=== PATIENT | female | born 1965 | race Caucasian/White ===

== ENCOUNTER 2024-11-30 10:30 | Outpatient (REF) | payer MEDICAID, SELFPAY ==
--- NOTE | ~2024-11-30 | XR_ITS ---
EXAMINATION: XR ANKLE 3 OR MORE VIEWS RIGHT, XR FOOT 3 OR MORE VIEWS RIGHT HISTORY: right ankle/foot edema/pain COMPARISON: There are no prior studies available for comparison. FINDINGS: Six views of the right foot and ankle are submitted. Osseous mineralization is normal. There is no fracture or dislocation. The joint spaces are preserved. There is soft tissue swelling over the lateral malleolus. XR/XR foot RT min 3V IMPRESSION: Soft tissue swelling over the lateral malleolus. No evidence of fracture of the right foot or ankle. Electronically signed by: Kip Love MD 11/30/2024 11:02 AM EDT
--- NOTE | ~2024-11-30 | XR_ITS ---
EXAMINATION: XR ANKLE 3 OR MORE VIEWS RIGHT, XR FOOT 3 OR MORE VIEWS RIGHT HISTORY: right ankle/foot edema/pain COMPARISON: There are no prior studies available for comparison. FINDINGS: Six views of the right foot and ankle are submitted. Osseous mineralization is normal. There is no fracture or dislocation. The joint spaces are preserved. There is soft tissue swelling over the lateral malleolus. XR/XR ankle RT min 3V IMPRESSION: Soft tissue swelling over the lateral malleolus. No evidence of fracture of the right foot or ankle. Electronically signed by: Kip Love MD 11/30/2024 11:02 AM EDT
--- OUTSIDE RECORDS SUMMARY | 2024-11-30 11:31 | XMS_ITS | Encounter Summary ---
Author Organization [facility] Address [address] [place] [address] Care Team Providers Care Building Carpenter Name Role Phone Cathleen Gill [facility]ER Primary Care Provider [phone] Encounter Details Date Type Department Care Team ([facility] st Contact Info) Description 06/15/[address] [phone] Slim Lopez [phone] [place] [address] Social History Tobacco Use Types Packs/Day Years Used Date Smoking Tobacco: Never Smokeless Tobacco: Never Alcohol Use Standard Drinks/Week Comments No 0 (1 standard drink = 0.6 oz pur e alcohol) Comments Unknown Sex and Gender Information Value Date Recorded Sex Assigned at Female 05/07/2017 8:23 AM PDT Legal Sex Female 7:58 AM PDT Gender Identity Female 05/07/2017 8:23 AM PDT Sexual Orientation Straight 05/07/2017 8: 23 AM PDT Occupation Industry Job Start Date Job End Date Unemployed Not on file Not on file Not on file documented as of this encounter Miscellaneous Notes * Patient Instructions - Slim Lopez - 06/16/2017 9:26 AM EST If you are not able to keep your appointment please call [phone] hours before your appointment to cancel or reschedule. documented in this encounter Plan of Treatment Not on file documented as of this encounter Visit Diagnoses Not on filedocumented in this encounter Care Teams Building Carpenter Relationship Specialty Start Date End Date Cathleen Gill NP [address] [place] [id number] PCP - General Internal Medicine 10/21/17 04/26/18 documented as of this encounter
--- OUTSIDE RECORDS SUMMARY | 2024-11-30 11:31 | XMS_ITS | Encounter Summary ---
Author Organization [employer] Address [address] [facility] 7t [place] [address] Care Team Providers Care Sound Effects Technician Name Role Phone Unavailable Primary Care Provider Unavailabl e Encounter Details Date Type Department Care Team (Latest Contact Info) Description 11/29/2024 Travel Social History Tobacco Use Types Packs/Day Years Used Date Smoking Tobacco: Never Passive Smoke Exposure: Never Smokeless Tobacco: Never Comments Unknown Sex and Gender Information Value Date Recorded Sex Assigned at Female 09/28/2024 6:13 PM EDT Legal Sex Female 10:05 AM EST Gender Identity Female 09/28/2024 6:13 PM EDT Sexual Orientation Straight 09/28/2024 6: 59 PM EDT documented as of this encounter Plan of Treatment Upcoming Encounters Date Type Department Care Team (Late st Contact Info) Description 11/30/2024 1:30 PM EDT Office Visit [facility] ADULT DENTAL [address] [place] [address] Ajith Sapp DMD [address] [place] [address] 02/13/2025 10:45 AM EDT Office Visit [facility] MEDICINE [address] [place] [address] Sandy Whitley MD [address] [place] [address] documented as of this encounter Visit Diagnoses Not on filedocumented in this encounter
--- OUTSIDE RECORDS SUMMARY | 2024-11-30 11:31 | XMS_ITS | Clinical Summary ---
Author Organization [facility] Address [address] [place] [address] Care Team Providers Care Process Control Operator Name Role Phone Unavailable Primary Care Provider Unavailabl e Source Comments PLEASE NOTE, if this patient is a minor, it may be UNLAWFUL to discuss sensitive information that is contained in these records (such as FAMILY PLANNING, MENTAL HEALTH or SUBSTANCE ABUSE) with the minor patient's parent or other person without the patient's specific authorization.[facility] Allergies Active Allergy Reactions Criticality Noted Date Comments Penicillin G Rash 05/07/2017 Medications metoprolol succinate (TOPROL-XL) 100 mg 24 hr tablet TK 1 T PO QD 5 8 Active diclofenac sodium (VOLTAREN) 1 % gelIndications: Pain of left hip joint Apply topically 2 (two) times daily 100 g 1 8 Active rosuvastatin (CRESTOR) 5 mg tablet TK 1 T PO QD 5 8 Active hydroCHLOROthia zide (HYDRODIURIL) 25 mg tablet TK 1 T PO QD 4 8 Active acetaminophen (TYLENOL) 500 mg tabletIndicatio ns:Chronic pain of both knees Take 2 Tabs by mouth 2 to 3 (two to three) times daily 60 Tab 2 8 Active ergocalciferol, vitamin D2, (VITAMIN D2) 50,000 unit capsuleIndicati ons:Chronic pain of both knees Take 50,000 Units by mouth once a week Active capsaicin 0.025 % creamIndication s:Right hip pain,Chronic pain of both knees Apply topically 2 (two) times daily 45 g 2 8 Active diclofenac epolamine (FLECTOR) 1.3 % patchIndication s:Mid back pain on left side Place 1 Patch onto the skin 2 (two) times daily as needed for pain 30 Patch 1 8 Active Active Problems Problem Noted Date Diagnosed Date PAM (obstructive sleep apnea) 05/03/2018 Overview (05/03/2018): Sleep study ordered by cardiology Chronic diastolic heart failure ([facility] 2017 Overview (05/03/2018): Seen by cardiology-last follow-up 04/13/18-she thinks breathing is better but sometimes it is still heavy -I see that her creatinine on March 25 was up to 1.65. Prior to hctz it was 0.9, i'm going to repeat today. We may need to stop the drug. otherwise she is doing well, we await the result of her home sleep study. Return office visit with me in 6 months. History of dyspnea 12/15/2017 Overview (12/15/2017): 12/09/2017 [facility]- DR Cr Routine 2 views No acute pulmonary disease. Depression 10/21/2017 Hyperlipidemia 10/21/2017 Positive cardiac stress test 07/22/2017 Overview (10/21/2017): Pt follows with [facility] Cardiology at [address] in [place]. Scheduled with PVC Chronic daily headache 07/06/2017 Essential hypertension 06/08/2017 Anemia 05/07/2017 Overview (05/07/2017): Reports was treated with iron supplement- LMP 08/2016 Reports heavy periods in the past Arthropathy Overview (05/07/2017): [place] tests [place] in [place]- was told everything is normal Immunizations Immunization Administration Dates Next Due Flu, Preservative Free 04/16/2018,05/07/2017 TDAP 05/07/2017 Family History Medical History Relation Name Comments Diabetes Father Heart Problems Father Hypertension Father Diabetes Mother Hypertension Mother Mental illness Mother Relation Name Status Comments Father Mother Alive Social History Tobacco Use Types Packs/Day Years Used Date Smoking Tobacco: Never Smokeless Tobacco: Never Tobacco Cessation:Counseling Given: Yes Alcohol Use Standard Drinks/Week Comments No 0 (1 standard drink = 0.6 oz pur e alcohol) Social Connections Answer Date Recorded Social Connections and Isolation 0 03/13/2019 Financial Resource Strain Answer Date R ecorded Financial Resource Strain 0 2018 Stress Answer Date Recorded Stress 0 03/13/2019 Physical Activity Answer Date Recorded Physical Activity 0 03/13/2019 Food Insecurity Answer Date Recorded Food 0 03/13/2019 Transportation Needs Answer Date Record ed Transportation 0 03/13/2019 Housing Stability Answer Date Recorded Housing 0 03/13/2019 Safety and Environment Answer Date Linden rded Safety 0 03/13/2019 Utilities Answer Date Recorded Utilities 0 03/13/2019 Employment Answer Date Recorded Employment 0 03/13/2019 Comments No Sex and Gender Information Value Date Recorded Sex Assigned at Female 05/07/2017 8:23 AM PDT Legal Sex Female 7:58 AM PDT Gender Identity Female 05/07/2017 8:23 AM PDT Sexual Orientation Straight 05/07/2017 8: 23 AM PDT Occupation Industry Job Start Date Job End Date Unemployed Not on file Not on file Not on file Last Filed Vital Signs Vital Sign Reading Time Taken Comments Blood Pressure 140/84 04/16/2018 1:49 PM EDT Pulse 64 04/16/2018 1:07 PM EDT Temperature 36.1 ??C (96.9 ??F) 04/16/2018 1:07 PM ED T Respiratory Rate 12 04/16/2018 1:07 PM EDT Oxygen Saturation 98% 02/01/2018 4:05 PM EDT Inhaled Oxygen Concentration - - Weight 95.7 kg (211 lb) 04/16/2018 1:07 PM EDT Height 158 cm (5' 2.21 ) 04/16/2018 1:07 PM EDT Body Mass Index 38.34 04/16/2018 1:07 PM EDT Plan of Treatment Not on file Insurance [facility] [place] [address] [facility]
--- OUTSIDE RECORDS SUMMARY | 2024-11-30 11:32 | XMS_ITS | Clinical Summary ---
Author Organization [employer] Address [address] [place] [address] Care Team Providers Care Pattern Grader Cutter Name Role Phone Unavailable Primary Care Provider Unavailabl e Allergies Active Allergy Reactions Criticality Noted Date Comments Penicillins Hives 09/28/2024 Medications metoprolol succinate XL (Toprol-XL) 100 MG 24 hr tablet Take 1 tablet by mouth Once per day. 8 Active montelukast (Singulair) 10 MG tablet Take 10 mg by mouth at bedtime. Active rosuvastatin (Crestor) 10 MG tablet Take 10 mg by mouth Once per day. Active cyclobenzaprine (Flexeril) 10 MG tablet Take 1 tablet (10 mg) by mouth 3 times daily for 10 days. 30 tablet 5 Active meloxicam (Mobic) 15 MG tablet Take 1 tablet (15 mg) by mouth Once per day. 30 tablet 5 11/30/19 26 Active Diclofenac Sodium 1 % gel Apply 2 g topically 4 times daily. 350 g 2 5 11/28/19 25 Active Problems Problem Noted Date Diagnosed Date Extensor tendinitis of foot 11/29/2024 Assessment & Plan (11/29/2024 6:31 PM EDT): Recommended use of appropriate shoes that have support and Achilles tendon Elevate leg at least 3 times per day, apply ice on affected area for at least 15 minutes Take meloxicam daily x 1 week and Tylenol as needed Order x-ray of foot and follow-up with PCP Edema of right foot 11/29/2024 Assessment & Plan (11/29/2024 6:31 PM EDT): Most likely related to tendinitis, rule out DVT due to extension of the edema Order right leg DVT ultrasound Arthropathy 10/20/2024 Overview (10/20/2024): many tests done in [place]- was told everything is normal Flat foot 04/17/2021 Plantar fasciitis 04/17/2021 Tendonitis, Achilles, left 04/17/2021 Chronic diastolic heart failure 05/03/2018 Overview (10/20/2024): Seen by cardiology-last follow-up 04/13/18-she thinks breathing [...] office visit with me in 6 months. PAM (obstructive sleep apnea) 05/03/2018 Overview (10/20/2024): Sleep study ordered by cardiology History of dyspnea 12/15/2017 Overview (10/20/2024): 12/09/2017 [facility]- DR Cr Routine 2 views No acute pulmonary disease. Depression 10/21/2017 Hyperlipidemia 10/21/2017 Positive cardiac stress test 07/22/2017 Overview (10/20/2024): Pt follows with [facility] Cardiology at [address] in [place]. Scheduled with PVC Chronic daily headache 07/06/2017 Essential hypertension 06/08/2017 Anemia 05/07/2017 Overview (10/20/2024): Reports was treated with iron supplement- LMP 08/2016 Reports heavy periods in the past Encounters Date Type Department Care Team Description 11/29/2024 6:00 PM EDT Office Visit [facility] WALK-IN [address] [address] Sandy Whitley MD Edema of right foot (Primary Dx); Extensor tendinitis of foot 11/29/2024 Travel 10/20/2024 Telephone [facility] MEDICINE [address] [place] [address] Dariusz Mcclure MD New patient appt. 09/30/2024 Population Health Risk Score [facility] (C[facility]) Department [address] [phone] Provider, Population Health Generic 09/28/2024 6:40 PM EDT Office Visit [facility] C[facility] [address] [place] [address] Ivana Gregory FNP Lumbar radiculopathy (Primary Dx) 09/28/2024 Travel from Last 3 Months Immunizations Immunization Administration Dates Next Due Influenza injectable quadrivalent preservative f ree 04/16/2018,05/07/2017 Tdap 05/07/2017 Social History Tobacco Use Types Packs/Day Years Used Date Smoking Tobacco: Never Passive Smoke Exposure: Never Smokeless Tobacco: Never Tobacco Cessation:Counseling Given: Not Answered Comments Unknown Sex and Gender Information Value Date Recorded Sex Assigned at Female 09/28/2024 6:13 PM EDT Legal Sex Female 10:05 AM EST Gender Identity Female 09/28/2024 6:13 PM EDT Sexual Orientation Straight 09/28/2024 6: 59 PM EDT Last Filed Vital Signs Vital Sign Reading Time Taken Comments Blood Pressure 197/77 11/29/2024 6:13 PM EDT Pulse 62 11/29/2024 6:13 PM EDT Temperature 36.9 ??C (98.5 ??F) 11/29/2024 6:13 PM ED T Respiratory Rate 16 11/29/2024 6:13 PM EDT Oxygen Saturation 100% 09/28/2024 6:17 PM EDT Inhaled Oxygen Concentration - - Weight 94.1 kg (207 lb 6.4 oz) 11/29/2024 6:13 P M EDT Height 154.9 cm (5' 1 ) 09/28/2024 6:17 PM EDT Body Mass Index 39.19 09/28/2024 6:17 PM EDT Plan of Treatment Upcoming Encounters Date Type Department Care Team (Late st Contact Info) Description 11/30/2024 1:30 PM EDT Office Visit [facility] ADULT DENTAL [address] [place] [address] Jose MariayennyAjith, DMD [address] [place], [place] [phone] 02/13/2025 10:45 AM EDT Office Visit [facility] MEDICINE [address] [place] [address] Sandy Whitley MD [address] [place], [place] [phone] Health Maintenance Due Date Last Done Comments CT Colonography 1967 Colonoscopy 1967 Colorectal Cancer Screening 1967 Dental Oral Exam 1967 Dental Prophylaxis 1967 Dental X-Ray: Bitewings 1967 Dental X-Ray: Full Mouth 1967 Depression Screening 1967 FIT DNA/Cologuard 1967 FIT 1967 FOBT 1967 HIV Screening 1967 Lipid Panel 1967 SDOH Screening 1967 Sigmoidoscopy 1967 Alcohol/Substance Use Screening 1979 Hepatitis C Screening 12/09/1985 Hepatitis B Vaccines (1 of 3 - 19+ 3-dose series) 12/09/1986 Pneumococcal Vaccine: 50+ Years (1 of 2 - PCV) 12/09/1986 Pap Smear 12/09/1988 Cervical Cancer Screening 12/09/1997 HPV/Cotest 12/09/1997 Mammogram 2007 Zoster Vaccines (1 of 2) 12/09/2017 COVID-19 Vaccine ( - 2023-2 5 season) 2024 Influenza Vaccine (#1) 2024 8, 05/07/2017 Tobacco Screening 09/28/2025 09/28/2024 DTaP/Tdap/Td Vaccines (2 - T d or Tdap) 05/07/2027 05/07/2017 RSV Patients and Patients Aged 60 years or older (1 - 1-dose 75+ series) 12/09/2042 HIB Vaccines Aged Out No longer eligi ble based on patient's age to complete this topic HPV Vaccines Aged Out No longer eligi ble based on patient's age to complete this topic Hepatitis A Vaccines Aged Out No long er eligible based on patient's age to complete this topic IPV Vaccines Aged Out No longer eligi ble based on patient's age to complete this topic Meningococcal B Vaccine Aged Out No l onger eligible based on patient's age to complete this topic Meningococcal Vaccine Aged Out No kirstie vahid eligible based on patient's age to complete this topic RSV under 20 months Aged Out No longe r eligible based on patient's age to complete this topic Rotavirus Vaccines Aged Out No longer eligible based on patient's age to complete this topic Procedures Procedure Name Priority Date/Time Associated Diagnosis Comments XR FOOT 3+ VIEWS RIGHT Routine 11/30/2024 10:30 AM EDT Edema of right foot XR ANKLE 3+ VIEWS RIGHT Routine 11/30/2024 10:30 AM EDT Edema of right foot from Last 3 Months Results * XR Foot 3+ Views Right (11/30/2024 10:30 AM EDT) Anatomical Region Laterality Modality Lower Extremities, Foot Right [facility] 11/30/2024 10:3 0 AM EDT Narrative 11/30/2024 11:06 AM EDT ?[facility] ?[address] ?[place] [address] ?XRay Report ? Signed ? Patient: Breana Clarillo,Connie ?MR#: MM ?? [id number] ? : 1965 ?Acct:[id number] ? Age/Sex: 58 / F ?ADM Date: 11/30/24 ? Loc: HO.HHCX ? Attending Dr: Sandy Whitley MD ? Ordering Physician: Sandy Whitley MD ?? Date of Service: 11/30/24 ?? Procedure(s): XR foot RT min 3V ?? Accession Number(s): [id number] ? cc: Sandy Whitley MD ? EXAMINATION: ??XR ANKLE 3 OR MORE VIEWS RIGHT, XR FOOT 3 OR MORE VIEWS ?? RIGHT ? HISTORY: right ankle/foot edema/pain ? COMPARISON: There are no prior studies available for comparison. ? FINDINGS: ? Six views of the right foot and ankle are submitted. ??Osseous ?? mineralization is normal. ??There is no fracture or dislocation. ??The ?? joint spaces are preserved. ??There is soft tissue swelling over the ?? lateral malleolus. ? XR/XR foot RT min 3V ?? IMPRESSION: ? Soft tissue swelling over the lateral malleolus. No evidence of ?? fracture of the right foot or ankle. ? Electronically signed by: ??Kip Love MD ??11/30/2024 11:02 AM EDT ? Dictated By: ?Kip Love MD ? Signed By: ?<Electronically signed by Kip Love MD in OV> ?11/30/24 1102 ? DD/ 1030 ? TD/TT: 11/30/24 1040 ? Manager Employment: ? Procedure Note [employer], Image - 11/30/2024 [place] [address] XRay Report Signed Patient: Valentina HammondsR#: [id number] : 1965Acct:[id number] Age/Sex: 58 / FADM Date: 11/30/24 Loc: HO.HHCX Attending Dr: Sandy Whitley MD Ordering Physician: Sandy Whitley MD Date of Service: 11/30/24 Procedure(s): XR foot RT min 3V Accession Number(s): [id number] cc: Sandy Whitley MD EXAMINATION: XR ANKLE 3 OR MORE VIEWS RIGHT, XR FOOT 3 OR MORE VIEWS RIGHT HISTORY: right ankle/foot edema/pain COMPARISON: There are no prior studies available for comparison. FINDINGS: Six views of the right foot and ankle are submitted. Osseous mineralization is normal. There is no fracture or dislocation. The joint spaces are preserved. There is soft tissue swelling over the lateral malleolus. XR/XR foot RT min 3V IMPRESSION: Soft tissue swelling over the lateral malleolus. No evidence of fracture of the right foot or ankle. Electronically signed by: Kip Love MD 11/30/2024 11:02 AM EDT Dictated By: Kip Love MD Signed By: <Electronically signed by Kip Love MD in OV> 11/30/24 1102 DD/ 1030 TD/TT: 11/30/24 1040 Manager Employment: us Sandy Whitley MD IMG XR PROCEDURES Final Result * XR Ankle 3+ Views Right (11/30/2024 10:30 AM EDT) Anatomical Region Laterality Modality Lower Extremities, Ankle Right Radiogr [facility] Imaging 11/30/2024 10:3 0 AM EDT Narrative 11/30/2024 11:06 AM EDT ?[facility] ?[address] ?[place] [address] ?XRay Report ? Signed ? Patient: Breana Clarillo,Connie ?MR#: [id number] ?? [id number] ? : 1965 ?Acct:[id number] ? Age/Sex: 58 / F ?ADM Date: 11/30/24 ? Loc: HO.HHCX ? Attending Dr: Sandy Whitley MD ? Ordering Physician: Sandy Whitley MD ?? Date of Service: 11/30/24 ?? Procedure(s): XR ankle RT min 3V ?? Accession Number(s): [id number] ? cc: Sandy Whitley MD ? EXAMINATION: ??XR ANKLE 3 OR MORE VIEWS RIGHT, XR FOOT 3 OR MORE VIEWS ?? RIGHT ? HISTORY: right ankle/foot edema/pain ? COMPARISON: There are no prior studies available for comparison. ? FINDINGS: ? Six views of the right foot and ankle are submitted. ??Osseous ?? mineralization is normal. ??There is no fracture or dislocation. ??The ?? joint spaces are preserved. ??There is soft tissue swelling over the ?? lateral malleolus. ? XR/XR ankle RT min 3V ?? IMPRESSION: ? Soft tissue swelling over the lateral malleolus. No evidence of ?? fracture of the right foot or ankle. ? Electronically signed by: ??Kip Love MD ??11/30/2024 11:02 AM EDT ?? RP ? Dictated By: ?Kip Love MD ? Signed By: ?<Electronically signed by Kip Love MD in OV> ?11/30/24 1102 ? DD/ 1030 ? TD/TT: 11/30/24 1040 ? Manager Employment: ? Procedure Note [employer], Image - 11/30/[address] [address] XRay Report Signed Patient: Yifan HammondssMR#: [id number] : 1965Acct:[id number] Age/Sex: 58 / FADM Date: 11/30/24 Loc: HO.HHCX Attending Dr: Sandy Whitley MD Ordering Physician: Sandy Whitley MD Date of Service: 11/30/24 Procedure(s): XR ankle RT min 3V Accession Number(s): [id number] cc: Sandy Whitley MD EXAMINATION: XR ANKLE 3 OR MORE VIEWS RIGHT, XR FOOT 3 OR MORE VIEWS RIGHT HISTORY: right ankle/foot edema/pain COMPARISON: There are no prior studies available for comparison. FINDINGS: Six views of the right foot and ankle are submitted. Osseous mineralization is normal. There is no fracture or dislocation. The joint spaces are preserved. There is soft tissue swelling over the lateral malleolus. XR/XR ankle RT min 3V IMPRESSION: Soft tissue swelling over the lateral malleolus. No evidence of fracture of the right foot or ankle. Electronically signed by: Kip Love MD 11/30/2024 11:02 AM EDT Dictated By: Kip Love MD Signed By: <Electronically signed by Kip Love MD in OV> 11/30/24 1102 DD/ 1030 TD/TT: 11/30/24 1040 Manager Employment: Sandy Whitley MD IMG XR PROCEDURES Final Result from Last 3 Months Insurance [facility] C3 DENTAL-[facility] MEDICAID STAND ADULT
--- OUTSIDE RECORDS SUMMARY | 2024-11-30 11:32 | XMS_ITS | Clinical Summary ---
[facility] [address] [place] [address] Care Team Providers Care Supervisor Shipping Name Role Phone Joseph De León MD Primary Care Provider [phone] Family History Medical History Relation Name Comments Heart attack Father Diabetes Mother Hypertension Mother Relation Name Status Comments Father Mother Social History Tobacco Use Types Packs/Day Years Used Date Smoking Tobacco: Never Smokeless Tobacco: Never Alcohol Use Standard Drinks/Week Comments No 0 (1 standard drink = 0.6 oz pur e alcohol) Comments Unknown Sex and Gender Information Value Date Recorded Sex Assigned at Not on file Legal Sex Female 2:00 AM EST Gender Identity Not on file Sexual Orientation Not on file Obstetrics History Plan of Treatment Health Maintenance Due Date Last Done Comments Breast Cancer Screening 1965 DTaP,Tdap,and Td Vaccines (1 - Tdap) 12/09/1986 Hepatitis B Vaccines (1 of 3 - 19+ 3-dose series) 12/09/1986 Cervical Cancer Screening: P ap Smear 12/09/1988 Pneumococcal Vaccine: 50+ Ye ars (1 of 1 - PCV) 12/09/2017 Zoster Vaccines (1 of 2) 12/09/2017 COVID-19 Vaccine ( - 2023-2 5 season) 2024 Influenza Vaccine (Season Ended) 2025 HIB Vaccines Aged Out No longer eligi [...] on patient's age to complete this topic MMR Vaccines Aged Out No longer eligi ble based on patient's age to complete this topic Meningococcal ACWY Vaccine Aged Out N o longer eligible based on patient's age to complete this topic Meningococcal B Vaccine Aged Out No l onger eligible based on patient's age to complete this topic Pneumococcal Vaccine: Pediat rics (0 to 5 Years) and At-Risk Patients (6 to 64 Years) Aged Out No longer eligible b ased on patient's age to complete this topic RSV Immunization Patients Un ced 20 months Aged Out No longer eligible b ased on patient's age to complete this topic Varicella Vaccines Aged Out No longer eligible based on patient's age to complete this topic Care Teams Supervisor Shipping Relationship Specialty Start Date End Date Joseph De León MD [address] [place] [address] [id number] [place] [address] PCP - General Internal Medicine 06/10/20
--- OUTSIDE RECORDS SUMMARY | 2024-11-30 11:32 | XMS_ITS | Encounter Summary ---
Author Organization [employer] Address [address] [facility] 7t [place] [address] Care Team Providers Care Literacy Coordinator Name Role Phone Unavailable Primary Care Provider Unavailabl e Reason for Referral * Imaging (Routine) - Authorized Specialty Diagnoses / Procedures Referred By Contac t Referred To Contact Cardiology Diagnoses Edema of right foot Procedures Vascular US lower extremity venous duplex right Sandy Whitley MD [address] [place] [address] Phone: tel: fax: [address] Phone: tel: fax: Referral ID Status Reason Start Date Expiration Date Visits Requested Visits Authorized [id number] Authorized Perform Procedure 11/29/2024 11/29/2025 1 1 Reason for Visit * Reason Comments Foot Swelling Patient reports righ t foot pain x 1 week, and swelling x 4 days Encounter Details Date Type Department Care Team (Late st Contact Info) Description 11/29/2024 6:00 PM EDT Office Visit [facility] [address] [place] [phone] Sandy Whitley MD [address] [place] [address] [phone] Edema of right foot (Primary Dx); Extensor tendinitis of foot Social History Tobacco Use Types Packs/Day Years Used Date Smoking Tobacco: Never Passive Smoke Exposure: Never Smokeless Tobacco: Never Comments Unknown Sex and Gender Information Value Date Recorded Sex Assigned at Female 09/28/2024 6:13 PM EDT Legal Sex Female 10:05 AM EST Gender Identity Female 09/28/2024 6:13 PM EDT Sexual Orientation Straight 09/28/2024 6: 59 PM EDT documented as of this encounter Last Filed Vital Signs Vital Sign Reading Time Taken Comments Blood Pressure 197/77 11/29/2024 6:13 PM EDT Pulse 62 11/29/2024 6:13 PM EDT Temperature 36.9 ??C (98.5 ??F) 11/29/2024 6:13 PM ED T Respiratory Rate 16 11/29/2024 6:13 PM EDT Oxygen Saturation - - Inhaled Oxygen Concentration - - Weight 94.1 kg (207 lb 6.4 oz) 11/29/2024 6:13 P M EDT Height - - Body Mass Index 39.19 09/28/2024 6:17 PM EDT documented in this encounter Progress Notes * Sandy Whitley MD - 11/29/2024 6:00 PM EDT SUBJECTIVE: Connie Cardona is a 58 y.o. year old female who presents for Walk In Center/swollen foot . Denies recent illness, injury, or hospitalization. PMHx HTN HLD Fibromyalgia IFG PSHx x 4, last one on 04/2006 Sp Endometrial ablation 2y ago. FamHx Mother is , had PD, DM, HTN Father at age 70s from ACS. Soc Hx Lives with her daughter She's on disability. Acute Concerns: Right foot edema and tenderness with ambulation x 1w. No hx trauma , fall, fever. No hx prolonged travel, she drives her car doing errands on a regular basis. Social History Social History Narrative Not on file Patient Active Problem List Diagnosis Anemia Arthropathy Chronic daily headache Chronic diastolic heart failure (CMS/HCC) Depression Essential hypertension Flat foot History of dyspnea Hyperlipidemia PAM (obstructive sleep apnea) Plantar fasciitis Positive cardiac stress test Tendonitis, Achilles, left Extensor tendinitis of foot Edema of right foot No family history on file. Review of Systems Constitutional: Negative for chills, fatigue and fever. HENT: Negative for congestion, ear pain, nosebleeds, rhinorrhea, sinus pressure, sore throat and trouble swallowing. Eyes: Negative for pain and discharge. Respiratory: Negative for cough, chest tightness and shortness of breath. Cardiovascular: Negative for chest pain, palpitations and leg swelling. Gastrointestinal: Negative for abdominal pain, blood in stool, constipation, diarrhea and nausea. Endocrine: Negative for polydipsia and polyuria. Genitourinary: Negative for dysuria, frequency, genital sores, pelvic pain and vaginal discharge. Musculoskeletal: Positive for gait problem and joint swelling. Negative for back pain and neck pain. Skin: Negative for rash. Allergic/Immunologic: Negative for environmental allergies. Neurological: Negative for dizziness, seizures, weakness, light-headedness and headaches. Hematological: Negative for adenopathy. Psychiatric/Behavioral: Negative for agitation, behavioral problems, self-injury and suicidal ideas. OBJECTIVE: Vitals: 11/29/24 1813 BP: (!) 197/77 Pulse: 62 Resp: 16 Temp: 98.5 ??F (36.9 ??C) Physical Exam Constitutional: Appearance: Normal appearance. HENT: Right Ear: Tympanic membrane and ear canal normal. Left Ear: Tympanic membrane and ear canal normal. Mouth/Throat: Mouth: Mucous membranes are moist. Pharynx: No oropharyngeal exudate or posterior oropharyngeal erythema. Eyes: Pupils: Pupils are equal, round, and reactive to light. Cardiovascular: Rate and Rhythm: Normal rate and regular rhythm. Pulses: Normal pulses. Dorsalis pedis pulses are 2+ on the right side and 2+ on the left side. Posterior tibial pulses are 2+ on the right side and 2+ on the left side. Heart sounds: Normal heart sounds. No murmur heard. Pulmonary: Breath sounds: Normal breath sounds. No wheezing. Abdominal: General: Bowel sounds are normal. Palpations: Abdomen is soft. Tenderness: There is no abdominal tenderness. Musculoskeletal: General: Normal range of motion. Cervical back: Normal range of motion and neck supple. No tenderness. Right ankle: Swelling present. Tenderness present over the ATF ligament. Right foot: No deformity. Left foot: No deformity. Feet: Right foot: Protective Sensation: 7 sites tested. 7 sites sensed. Skin integrity: No ulcer or fissure. Toenail Condition: Right toenails are normal. Left foot: Protective Sensation: 7 sites tested. 7 sites sensed. Skin integrity: No ulcer or fissure. Toenail Condition: Left toenails are normal. Comments: Right foot pitting edema 2, preserved capillary filling, neg foot or interdigital lesions. Tenderness to palpation over extensor tendons of right foot. Skin: General: Skin is warm. Neurological: General: No focal deficit present. Mental Status: She is alert and oriented to person, place, and time. Psychiatric: Mood and Affect: Mood normal. Behavior: Behavior normal. Problem List Items Addressed This Visit Extensor tendinitis of foot Recommended use of appropriate shoes that have support and Achilles tendon Elevate leg at least 3 times per day, apply ice on affected area for at least 15 minutes Take meloxicam daily x 1 week and Tylenol as needed Order x-ray of foot and follow-up with PCP Edema of right foot - Primary Most likely related to tendinitis, rule out DVT due to extension of the edema Order right leg DVT ultrasound Relevant Orders XR Ankle 3+ Views Right Vascular US lower extremity venous duplex right XR Foot 3+ Views Right Follow Up: Current Outpatient Medications on File Prior to Visit Medication Sig Dispense Refill cyclobenzaprine (Flexeril) 10 MG tablet Take 1 tablet (10 mg) by mouth 3 times daily for 10 days. 30 tablet 0 [] Diclofenac Sodium 1 % gel Apply 2 g topically 4 times daily. 350 g 2 metoprolol succinate XL (Toprol-XL) 100 MG 24 hr tablet Take 1 tablet by mouth Once per day. montelukast (Singulair) 10 MG tablet Take 10 mg by mouth at bedtime. rosuvastatin (Crestor) 10 MG tablet Take 10 mg by mouth Once per day. No current facility-administered medications on file prior to visit. documented in this encounter Miscellaneous Notes * Assessment & Plan Note - Sandy Whitley MD - 11/29/2024 6:31 PM EDT Associated Problem(s): Edema of right foot Most likely related to tendinitis, rule out DVT due to extension of the edema Order right leg DVT ultrasound * Assessment & Plan Note - Sandy Whitley MD - 11/29/2024 6:31 PM EDT Associated Problem(s): Extensor tendinitis of foot Recommended use of appropriate shoes that have support and Achilles tendon Elevate leg at least 3 times per day, apply ice on affected area for at least 15 minutes Take meloxicam daily x 1 week and Tylenol as needed Order x-ray of foot and follow-up with PCP documented in this encounter Plan of Treatment Upcoming Encounters Date Type Department Care Team (Late st Contact Info) Description 11/30/2024 1:30 PM EDT Office Visit [facility] [address] [place] [address] Ajith Sapp, DMD [address] [place] [address] 02/13/2025 10:45 AM EDT Office Visit [facility] [address] [place] [address] Sandy Whitley MD [address] [place] [address] documented as of this encounter Procedures Procedure Name Priority Date/Time Associated Diagnosis Comments XR FOOT 3+ VIEWS RIGHT Routine 11/30/2024 10:30 AM EDT Edema of right foot XR ANKLE 3+ VIEWS RIGHT Routine 11/30/2024 10:30 AM EDT Edema of right foot documented in this encounter Results * XR Foot 3+ Views Right (11/30/2024 10:30 AM EDT) Anatomical Region Laterality Modality Lower Extremities, Foot Right Radiogra [facility] Imaging 11/30/2024 10:3 0 AM EDT Narrative 11/30/2024 11:06 AM EDT ?[facility] ?[address] ?[place] [address] ?XRay Report ? Signed ? Patient: Breana Clarillo,Connie ?MR#: MM ?? [id number] ? : 1965 ?Acct:[id number] ? Age/Sex: 58 / F ?ADM Date: 05/14/25 ? Loc: HO.HHCX ? Attending Dr: Sandy Whitley MD ? Ordering Physician: Sandy Whitley MD ?? Date of Service: 11/30/24 ?? Procedure(s): XR foot RT min 3V ?? Accession Number(s): [id number] ? cc: Sandy Whitley MD ? EXAMINATION: [...] ? Signed By: ?<Electronically signed by Kip Loev MD in OV> ?11/30/24 1102 ? DD/ 1030 ? TD/TT: 11/30/24 1040 ? Grading Supervisor: ? Procedure Note Med Brower - 11/30/[address] [address] XRay Report Signed Patient: Shayan Hammonds#: [id number] : 1965Acct:[id number] Age/Sex: 58 / FADM Date: 11/30/24 Loc: HO.HHCX Attending Dr: Sandy Whitley MD Ordering Physician: Sandy Whitley MD Date of Service: 11/30/24 Procedure(s): XR foot RT min 3V Accession Number(s): [id number] cc: Sandy Whitley MD EXAMINATION: XR ANKLE [...] Kip Love MD 11/30/2024 11:02 AM EDT RP Dictated By: Kip Love MD Signed By: <Electronically signed by Kip Love MD in OV> 11/30/24 1102 DD/ 1030 TD/TT: 11/30/24 1040 Grading Supervisor: Sandy Whitley MD IMG XR PROCEDURES Final Result * XR Ankle 3+ Views Right (11/30/2024 10:30 AM EDT) Anatomical Region Laterality Modality Lower Extremities, Ankle Right Radiogr aphic Imaging 11/30/2024 10:3 0 AM EDT Narrative 11/30/2024 11:06 AM EDT ?[facility] ?[address] ?[place] [address] ?XRay Report ? Signed ? Patient: Breana Clarillo,Connie ?MR#: MM ?? [id number] ? : 1965 ?Acct:[id number] ? Age/Sex: 58 / F ?ADM Date: 05/14/25 ? Loc: HO.HHCX ? Attending Dr: Sandy Whitley MD ? Ordering Physician: Sandy Whitley MD ?? Date of Service: 11/30/24 ?? Procedure(s): XR ankle RT min 3V ?? Accession Number(s): [id number] ? cc: Sandy Whitley MD ? EXAMINATION: [...] DD/ 1030 ? TD/TT: 11/30/24 1040 ? Grading Supervisor: ? Procedure Note Inocente, Image - 11/30/[address] [address] XRay Report Signed Patient: Yifan HammondssMR#: [id number] : 1965Acct:[id number] Age/Sex: 58 / FADM Date: 11/30/24 Loc: HO.HHCX Attending Dr: Sandy Whitley MD Ordering Physician: Sandy Whitley MD Date of Service: 11/30/24 Procedure(s): XR ankle RT min 3V Accession Number(s): [id number] cc: Sandy Whitley MD EXAMINATION: XR ANKLE [...] Kip Love MD 11/30/2024 11:02 AM EDT RP Dictated By: Kip Love MD Signed By: <Electronically signed by Kip Love MD in OV> 11/30/24 1102 DD/ 1030 TD/TT: 11/30/24 1040 Grading Supervisor: us Sandy Whitley MD IMG XR PROCEDURES Final Result documented in this encounter Visit Diagnoses Diagnosis Edema of right foot- Primary Extensor tendinitis of foot documented in this encounter
== END 2024-11-30 10:31 | disposition home or self-care (01) ==
LOC: HO.HHCX 10:30
PROVIDERS: Visit Provider Internal Medicine
DX: R60.0 Localized edema (principal)
CPT/HCPCS: 73610; 73630

== ENCOUNTER → 2024-11-30 10:30 | Outpatient (BNV) | payer MEDICAID, SELFPAY | PROVIDERS: Visit Provider Radiology Diagnostic Radiology | DX: M70.871 Other soft tissue disorders related to use, overuse and pressure, right ankle and foot (principal); M79.671 Pain in right foot | CPT/HCPCS: 73610; 73630 ==

== ENCOUNTER 2024-12-01 08:37 | Outpatient (REF) | payer MEDICAID, SELFPAY ==
--- NOTE | ~2024-12-01 | US_ITS ---
EXAMINATION: US LOWER EXTREMITY VEINS LIMITED FOLLOW UP RIGHT HISTORY: EDEMA OF RT FOOT COMPARISON: There are no prior studies for comparison. TECHNIQUE: Duplex and color Doppler sonographic examination of the deep venous system of the right lower extremity was performed. FINDINGS: The common femoral, superficial femoral, and popliteal veins are patent demonstrating normal compressibility, spontaneous flow, and augmentation. There is a normal color and spectral Doppler waveform appearance of the visualized deep venous system above the knee. The posterior tibial and peroneal veins are patent. US/US venous duplex LE RT IMPRESSION: No evidence of acute DVT in the right lower extremity. Electronically signed by: Kip Love MD 12/01/2024 09:43 AM EDT
--- OUTSIDE RECORDS SUMMARY | 2024-12-01 09:00 | XMS_ITS | Encounter Summary ---
Author Organization [employer] Address [address] [facility] 7t [place] [address] Care Team Providers Care Head Of Cytogenetics Name Role Phone Unavailable Primary Care Provider Unavailabl e Reason for Visit * Reason Comments Dental Exam Encounter Details Date Type Department Care Team (Late st Contact Info) Description 11/30/2024 1:30 PM EDT Office Visit [facility] [address] [place] [address] Ajith Sapp DMD [address] [place] [address] Social History Tobacco Use Types Packs/Day Years Used Date Smoking Tobacco: Never Passive Smoke Exposure: Never Smokeless Tobacco: Never Alcohol Use Standard Drinks/Week Comments Never 0 (1 standard drink = 0.6 oz [...] Sign Reading Time Taken Comments Blood Pressure 154/80 11/30/2024 1:24 PM EDT Pulse 68 11/30/2024 1:24 PM EDT Temperature - - Respiratory Rate - - Oxygen Saturation - - Inhaled Oxygen Concentration - - Weight - - Height - - Body Mass Index - - documented in this encounter Progress Notes * Ajith Sapp DMD - 11/30/2024 1:30 PM EDT C/C: dental exam I.O.E: gen plaque accumulation, erythematous and edematous gingiva, bleeding upon probing at UR posterior teeth E.O.E: wnl OCS: wnl Head and neck: wnl Radiographic: gen moderate periodontal bone loss, gen calculus accumulation Dx: gen chronic moderate periodontitis Tx: prophy, recall exam Jada documented in this encounter Plan of Treatment Upcoming Encounters Date Type Department Care Team (Late st Contact Info) Description 12/26/2024 3:00 PM EDT Office Visit [facility] [address] [place] [address] Sheng Mcelroy 02/13/2025 10:45 AM EDT Office Visit [facility] [address] [place], [place] [phone] Sandy Whitley MD [address] [place], [place] [phone] Scheduled Orders Name Type Priority Associated Diagnoses Orde r Schedule PROPHYLAXIS - ADULT Dental Routine 1 Occ urrences starting 11/30/2024 documented as of this encounter Procedures Procedure Name Priority Date/Time Associated Diagnosis Comments PERIODIC ORAL EVALUATION - ESTABLISHED PATIENT Routine 11/30/2024 1:30 PM EDT INTRAORAL - COMPLETE SERIES OF RADIOGRAPHIC IMAGES Routine 11/30/2024 1:30 PM EDT CASE PRESENTATION, DETAILED AND EXTENSIVE TREATMENT PLANNING Routine 11/30/2024 1:30 PM EDT 19 DO COMPOSITE FILLING Routine 12/01/19 25 12:00 AM EDT 14 LO COMPOSITE FILLING Routine 12/01/19 25 12:00 AM EDT 32 O AMALGAM FILLING Routine 11/30/2024 12:00 AM EDT 31 O AMALGAM FILLING Routine 11/30/2024 12:00 AM EDT 29 O AMALGAM FILLING Routine 11/30/2024 12:00 AM EDT 28 O AMALGAM FILLING Routine 11/30/2024 12:00 AM EDT 18 O AMALGAM FILLING Routine 11/30/2024 12:00 AM EDT 15 O AMALGAM FILLING Routine 11/30/2024 12:00 AM EDT 13 DO AMALGAM FILLING Routine 11/30/2024 12:00 AM EDT documented in this encounter Visit Diagnoses Not on filedocumented in this encounter
--- OUTSIDE RECORDS SUMMARY | 2024-12-01 09:00 | XMS_ITS | Encounter Summary ---
Author Organization [facility] Address [address] [place] [address] Care Team Providers Care Sport Shoe Spike Assembler Name Role Phone Cathleen Gill LEAFLET OR NEWSPAPER DELIVERER Primary Care Provider [phone] Encounter Details Date Type Department Care Team ([facility] st Contact Info) Description 06/15/[address] [phone] Slim Lopez [phone] [place] [address] Social History Tobacco Use Types Packs/Day Years [...] on filedocumented in this encounter Care Teams Sport Shoe Spike Assembler Relationship Specialty Start Date End Date Cathleen Gill NP [address] [place] [phone] PCP - General Internal Medicine 10/21/17 04/26/18 documented as of this encounter
--- OUTSIDE RECORDS SUMMARY | 2024-12-01 09:00 | XMS_ITS | Encounter Summary ---
Author Organization [employer] Address [address] [facility] 7t [place] [address] Care Team Providers Care Painter Aircraft Name Role Phone Unavailable Primary Care Provider [...] Description 12/26/2024 3:00 PM EDT Office Visit [facility] [address] [place] [address] Sheng Mcelroy 02/13/2025 10:45 AM EDT Office Visit [facility] [address] [place] [address] Sandy Whitley MD [address] [place] [address] documented as of this encounter Visit Diagnoses Not on filedocumented in this encounter
--- OUTSIDE RECORDS SUMMARY | 2024-12-01 09:00 | XMS_ITS | Encounter Summary ---
Author Organization [employer] Address [address] [facility] 7t [place] [address] Care Team Providers Care Pharmacy Data Analyst Name Role Phone Unavailable Primary Care Provider Unavailabl e Reason for Referral * Imaging (Routine) - Authorized Specialty Diagnoses / Procedures Referred By Contac t Referred To Contact Cardiology Diagnoses Edema of right foot Procedures Vascular US lower extremity venous duplex right Sandy Whitley MD [address] [place] [address] Phone: tel: fax: [address] Phone: tel: fax: Referral ID Status Reason Start Date Expiration Date Visits Requested Visits Authorized [id number] Authorized Perform Procedure 11/29/2024 11/29/2025 1 1 Reason for Visit * Reason Comments Foot Swelling Patient reports righ t foot pain x 1 week, and swelling x 4 days Encounter Details Date Type Department Care Team (Late st Contact Info) Description 11/29/2024 6:00 PM EDT Office Visit [facility] [address] [place] [phone] Sandy Whitley MD [address] [place] [address] [phone] Edema of right foot (Primary Dx); Extensor [...] Description 12/26/2024 3:00 PM EDT Office Visit [facility] [address] [place] [address] Shegn Mcelroy 02/13/2025 10:45 AM EDT Office Visit [facility] [address] [place] [address] Sandy Whitley MD [address] [place] [address] documented as of this encounter Procedures Procedure [...] Laterality Modality Lower Extremities, Foot Right Radiogra psychiatric Imaging 11/30/2024 10:3 0 AM EDT Narrative 11/30/2024 11:06 AM EDT ?[facility] ?[address] ?[place] [address] ?XRay Report ? Signed ? Patient: Breana Clarillo,Connie ?MR#: MM ?? [id number] ? : 1965 ?Acct:[id number] ? Age/Sex: 58 / F ?ADM Date: 05/14/25 ? Loc: HO.HHCX ? Attending Dr: Sandy Whitley MD ? Ordering Physician: Sandy Whitley MD ?? Date of Service: 11/30/24 ?? Procedure(s): XR foot RT min 3V ?? Accession Number(s): [id number] ? cc: Sandy Whitley MD ? EXAMINATION: [...] DD/ 1030 ? TD/TT: 11/30/24 1040 ? Fur Storage Clerk: ? Procedure Note Inocente, Image - 11/30/[address] [address] XRay Report Signed Patient: Shayan Hammonds#: MM [id number] : 1965Acct:[id number] Age/Sex: 58 / FADM Date: 11/30/24 Loc: HO.HHCX Attending Dr: Sandy Whitley MD Ordering Physician: Sandy Whitley MD Date of Service: 11/30/24 Procedure(s): XR foot RT min 3V Accession Number(s): [id number] cc: Sandy Whitley MD EXAMINATION: XR ANKLE [...] 11/30/24 1102 DD/ 1030 TD/TT: 11/30/24 1040 Fur Storage Clerk: Sandy Whitley MD IMG XR PROCEDURES Final Result * XR Ankle 3+ Views Right (11/30/2024 10:30 AM EDT) Anatomical Region Laterality Modality Lower Extremities, Ankle Right Radiogr aphic Imaging 11/30/2024 10:3 0 AM EDT Narrative 11/30/2024 11:06 AM EDT ?[facility] ?[address] ?[place] [address] ?XRay Report ? Signed ? Patient: Breana Clarillo,Connie ?MR#: MM ?? [id number] ? : 1965 ?Acct:[id number] ? Age/Sex: 58 / F ?ADM Date: 11/30/24 ? Loc: HO.HHCX ? Attending Dr: Sandy Whitley MD ? Ordering Physician: Sandy Whitley MD ?? Date of Service: 11/30/24 ?? Procedure(s): XR ankle RT min 3V ?? Accession Number(s): [id number] ? cc: Sandy Whitley MD ? EXAMINATION: [...] DD/ 1030 ? TD/TT: 11/30/24 1040 ? Fur Storage Clerk: ? Procedure Note Inocente, Image - 11/30/2024 [place] [address] XRay Report Signed Patient: Valentina HammondsR#: [id number] : 1965Acct:[id number] Age/Sex: 58 / FADM Date: 11/30/24 Loc: HO.HHCX Attending Dr: Sandy Whitley MD Ordering Physician: Sandy Whitley MD Date of Service: 11/30/24 Procedure(s): XR ankle RT min 3V Accession Number(s): [id number] cc: Sandy Whitley MD EXAMINATION: XR ANKLE [...] 11/30/24 1102 DD/ 1030 TD/TT: 11/30/24 1040 Fur Storage Clerk: us Sandy Whitley MD IMG XR PROCEDURES Final Result documented in this encounter Visit Diagnoses Diagnosis Edema of right foot- Primary Extensor tendinitis of foot documented in this encounter
--- OUTSIDE RECORDS SUMMARY | 2024-12-01 09:00 | XMS_ITS | Clinical Summary ---
Author Organization [facility] Address [address] [place] [address] Care Team Providers Care Quality Control Industrial Engineer Name Role Phone Unavailable Primary Care Provider [...] ordered by cardiology Chronic diastolic heart failure ([facility]) 2017 Overview (05/03/2018): Seen by cardiology-last follow-up [...] History of dyspnea 12/15/2017 Overview (12/15/2017): 12/09/2017 [facility]- DR Cr Routine 2 views No acute pulmonary disease. Depression 10/21/2017 Hyperlipidemia 10/21/2017 Positive cardiac stress test 07/22/2017 Overview (10/21/2017): Pt follows with [facility] at [address] [facility] [address] in [place]. Scheduled with PVC Chronic daily headache 07/06/2017 Essential hypertension 06/08/2017 Anemia 05/07/2017 Overview (05/07/2017): Reports was treated with iron supplement- LMP 08/2016 Reports heavy periods in the past Arthropathy Overview (05/07/2017): many tests done in [place]- was told everything is normal Immunizations Immunization [...] Insurance [facility] [address] [facility]
--- OUTSIDE RECORDS SUMMARY | 2024-12-01 09:00 | XMS_ITS | Clinical Summary ---
Author Organization [facility] [facility] [employer] Address [address] [facility] [address] [place] [address] Care Team Providers Care Drill Press Operator Helper Name Role Phone Unavailable Primary Care Provider Unavailabl e Allergies Active Allergy Reactions Criticality Noted Date Comments Penicillin G Rash Low 05/07/2017 Penicillins Hives 09/28/2024 Medications metoprolol succinate XL [...] for 10 days. 30 tablet 5 Active Additional Information Patient not taking.Reported on 11/30/2024 meloxicam (Mobic) 15 MG tablet Take 1 tablet (15 mg) by mouth Once per day. 30 tablet 5 11/30/19 26 Active Additional Information Patient not taking.Reported on 11/30/2024 Diclofenac Sodium 1 % gel Apply 2 g topically 4 times daily. 350 g 2 5 11/28/19 25 Additional Information Patient not taking.Reported on 11/30/2024 Active Problems Problem Noted Date Diagnosed Date [...] 10/20/2024 Overview (10/20/2024): many tests done in [place]- was told everything is normal Flat foot [...] History of dyspnea 12/15/2017 Overview (10/20/2024): 12/09/2017 [facility]- DR Cr Routine 2 views No acute pulmonary disease. Depression 10/21/2017 Hyperlipidemia 10/21/2017 Positive cardiac stress test 07/22/2017 Overview (10/20/2024): Pt follows with [facility] at [address] [facility] [address] in [place]. Scheduled with PVC Chronic daily headache 07/06/2017 Essential hypertension 06/08/2017 Anemia 05/07/2017 Overview (10/20/2024): Reports was treated with iron supplement- LMP 08/2016 Reports heavy periods in the past Encounters Date Type Department Care Team Description 11/30/2024 1:30 PM EDT Office Visit [facility] [address] [place] [address] Ajith Sapp, GRAY 11/29/2024 6:00 PM EDT Office Visit [facility] [address] [place] [phone] Sandy Whitley MD Edema of right foot (Primary Dx); Extensor tendinitis of foot 11/29/2024 Travel 10/20/2024 Telephone [facility] [address] [place] [address] Dariusz Mcclure MD New patient appt. 09/30/2024 Population Health Risk Score [facility] ([facility]) Department [address] [place] [id number] Provider, Population Health Generic 09/28/2024 6:40 PM EDT Office Visit [facility] [address] [place] [phone] Ivana Gregory FNP Lumbar radiculopathy (Primary Dx) 09/28/2024 Travel from Last 3 Months Immunizations Immunization Administration Dates Next Due Influenza injectable quadrivalent preservative f ree 04/16/2018,05/07/2017 Tdap 05/07/2017 Social History Tobacco Use Types Packs/Day Years Used Date Smoking Tobacco: Never Passive Smoke Exposure: Never Smokeless Tobacco: Never Tobacco Cessation:Counseling Given: Not Answered Alcohol Use Standard Drinks/Week Comments Never 0 (1 standard drink = 0.6 oz pur e alcohol) Comments Unknown Sex and Gender Information Value Date Recorded Sex Assigned at Female 09/28/2024 6:13 PM EDT Legal Sex Female 10:05 AM EST Gender Identity Female 09/28/2024 6:13 PM EDT Sexual Orientation Straight 09/28/2024 6 :59 PM EDT Last Filed Vital Signs Vital Sign Reading Time Taken Comments Blood Pressure 154/80 11/30/2024 1:24 PM EDT Pulse 68 11/30/2024 1:24 PM EDT Temperature 36.9 ??C (98.5 ??F) [...] Description 12/26/2024 3:00 PM EDT Office Visit [facility] [address] [place] [address] Sheng Mcelroy 02/13/2025 10:45 AM EDT Office Visit [facility] [address], [place] [phone] Sandy Whitley MD [address] [place], [place] [phone] Health Maintenance Due Date Last Done Comments CT Colonography 1967 Colonoscopy 1967 Colorectal Cancer Screening 1967 Dental Prophylaxis 1967 Depression Screening 1967 FIT DNA/Cologuard 1967 [...] 2024 Influenza Vaccine (#1) 2024 8, 05/07/2017 Dental Oral Exam 06/03/2025 11/30/2024 Tobacco Screening 11/30/2025 11/30/2024 Dental X-Ray: Bitewings 12/01/2025 11/30/2024 DTaP/Tdap/Td Vaccines (2 - T d or Tdap) 05/07/2027 05/07/2017 Dental X-Ray: Full Mouth 12/02/2027 11/30/2024 RSV Patients and Patients Aged 60 years [...] ESTABLISHED PATIENT Routine 11/30/2024 1:30 PM EDT CASE PRESENTATION, DETAILED AND EXTENSIVE TREATMENT PLANNING Routine 11/30/2024 1:30 PM EDT INTRAORAL - COMPLETE SERIES OF RADIOGRAPHIC IMAGES Routine 11/30/2024 1:30 PM EDT XR FOOT 3+ VIEWS RIGHT Routine 11/30/2024 10:30 AM EDT Edema of right foot XR ANKLE 3+ VIEWS RIGHT Routine 11/30/2024 10:30 AM EDT Edema of right foot 19 DO COMPOSITE FILLING Routine 11/30/2024 12:00 AM EDT 14 LO COMPOSITE FILLING Routine 11/30/2024 12:00 AM EDT 32 O AMALGAM FILLING [...] AMALGAM FILLING Routine 11/30/2024 12:00 AM EDT from Last 3 Months Results * XR Foot 3+ Views Right (11/30/2024 10:30 AM EDT) Anatomical Region Laterality Modality Lower Extremities, Foot Right Radiogra phic Imaging 11/30/2024 10:3 0 AM EDT Narrative 11/30/2024 11:06 AM EDT ?[facility] ?[address] ?[place] [address] ?XRay Report ? Signed ? Patient: Breana Clarillo,Connie ?MR#: [id number] ?? [id number] ? : 1965 ?Acct:[id number] ? Age/Sex: 58 / F ?ADM Date: 11/30/24 ? Loc: HO.HHCX ? Attending Dr: Sandy Whitley MD ? Ordering Physician: Sandy Whitley MD ?? Date of Service: 11/30/24 ?? Procedure(s): XR foot RT min 3V ?? Accession Number(s): [id number] ? cc: Sandy Whitley MD ? EXAMINATION: [...] AM EDT ?? RP ? Dictated By: ?iKp Love MD ? Signed By: ?<Electronically signed by Kip Love MD in OV> ?11/30/24 1102 ? DD/ 1030 ? TD/TT: 11/30/24 1040 ? Supervisor Harvesting: ? Procedure Note Donotuseinterpreter, Image - 11/30/[address] [address] XRay Report Signed Patient: Valentina HammondsR#: [id number] : 1965Acct:[id number] Age/Sex: 58 / FADM Date: 11/30/24 Loc: HO.HHCX Attending Dr: Sandy Whitley MD Ordering Physician: Sandy Whitley MD Date of Service: 11/30/24 Procedure(s): XR foot RT min 3V Accession Number(s): [id number] cc: Sandy Whitley MD EXAMINATION: XR ANKLE [...] 11/30/24 1102 DD/ 1030 TD/TT: 11/30/24 1040 Supervisor Harvesting: us Sandy Whitley MD IMG XR PROCEDURES Final Result * XR Ankle 3+ Views Right (11/30/2024 10:30 AM EDT) Anatomical Region Laterality Modality Lower Extremities, Ankle Right Radiogr aphic Imaging 11/30/2024 10:3 0 AM EDT Narrative 11/30/2024 11:06 AM EDT ?[facility] ?[address] ?[place] [address] ?XRay Report ? Signed ? Patient: Breana Clarillo,Connie ?MR#: [id number] ?? [id number] ? : 1965 ?Acct:[id number] ? Age/Sex: 58 / F ?ADM Date: 11/30/24 ? Loc: HO.HHCX ? Attending Dr: Sandy Whitley MD ? Ordering Physician: Sandy Whitley MD ?? Date of Service: 11/30/24 ?? Procedure(s): XR ankle RT min 3V ?? Accession Number(s): [id number] ? cc: Sandy Whitley MD ? EXAMINATION: [...] DD/ 1030 ? TD/TT: 11/30/24 1040 ? Supervisor Harvesting: ? Procedure Note Inocente, Image - 11/30/[address] [address] XRay Report Signed Patient: Shayan Hammonds#: [id number] : 1965Acct:[id number] Age/Sex: 58 / FADM Date: 11/30/24 Loc: HO.HHCX Attending Dr: Sandy Whitley MD Ordering Physician: Sandy Whitley MD Date of Service: 11/30/24 Procedure(s): XR ankle RT min 3V Accession Number(s): [id number] cc: Sandy Whitley MD EXAMINATION: XR ANKLE [...] 11/30/24 1102 DD/ 1030 TD/TT: 11/30/24 1040 Supervisor Harvesting: Sandy Whitley MD IMG XR PROCEDURES Final Result from Last [address] [place] [address] [facility] MEDICAID STAND ADULT
== END 2024-12-01 08:38 | disposition home or self-care (01) ==
LOC: HO.US 08:37
PROVIDERS: Visit Provider Internal Medicine
DX: R60.0 Localized edema (principal)
CPT/HCPCS: 93971

== ENCOUNTER → 2024-12-01 09:25 | Outpatient (BNV) | payer MEDICAID, SELFPAY | PROVIDERS: Visit Provider Radiology Diagnostic Radiology | DX: R22.41 Localized swelling, mass and lump, right lower limb (principal) | CPT/HCPCS: 93971 ==

== ENCOUNTER 2025-01-10 10:00 | Outpatient (RCR) | payer MEDICAID, SELFPAY | END 2025-01-17 12:34 | disposition home or self-care (01) | LOC: HO.PT 10:00 | PROVIDERS: PCP Internal Medicine; Visit Provider Nurse Practitioner Family | DX: M54.16 Radiculopathy, lumbar region (principal) | CPT/HCPCS: 97110; 97161; 97535 ==

== ENCOUNTER 2025-01-18 09:23 | Outpatient (REF) | payer MEDICAID, SELFPAY ==
--- OUTSIDE RECORDS SUMMARY | 2025-01-18 09:38 | XMS_ITS | Encounter Summary ---
Author Organization [employer] Address [address] [facility] [address] [place] [address] Care Team Providers Care Retail Project Merchandiser Name Role Phone Unavailable Primary Care Provider Unavailabl e Encounter Details Date Type Department Care Team (Late st Contact Info) Description 12/08/2024 Results Follow-Up [facility] [address] [place] [address] Sandy Whitley MD [address] [place] [address] XR Foot 3+ Views Right Social History Tobacco Use Types Packs/Day Years [...] PM EDT documented as of this encounter Miscellaneous Notes * Result Encounter Note - Sandy Whitley MD - 12/08/2024 4:12 PM EDT X-ray of right ankle and foot on 11/30/2024 showed changes consistent with tendinitis which patient was treated for at the time of the visit. I will follow-up with her as scheduled documented in this encounter Plan of Treatment Upcoming Encounters Date Type Department Care Team (Late Contact Info) Description 02/13/2025 10:45 AM EDT Office Visit [facility] [address] [place] [address] Sandy Whitley MD [address] [place] [address] 06/28/2025 2:00 PM EST Office Visit [facility] [address] [place] [address] Sheng Mcelroy documented as of this encounter Visit Diagnoses Not on filedocumented in this encounter
--- OUTSIDE RECORDS SUMMARY | 2025-01-18 09:38 | XMS_ITS | Clinical Summary ---
Author Organization [facility] Address [address] [place] [address] Care Team Providers Care Record Producer Name Role Phone Joseph De León MD Primary Care Provider [phone] Family History Medical History Relation Name Comments [...] 2023-2 5 season) 2024 Influenza Vaccine (#1) 2025 HIB Vaccines Aged Out No longer [...] age to complete this topic Care Teams Record Producer Relationship Specialty Start Date End Date Joseph De León MD [address] [place] [address] [id number] [place] [address] PCP - General Internal Medicine 06/10/20
--- OUTSIDE RECORDS SUMMARY | 2025-01-18 09:38 | XMS_ITS | Clinical Summary ---
Author Organization [facility] Address [address] [place] [address] Care Team Providers Care Police Patrol Lieutenant Name Role Phone Unavailable Primary Care Provider [...] ordered by cardiology Chronic diastolic heart failure ([facility]) 05/03/2018 Overview (05/03/2018): Seen by cardiology-last follow-up 04/13/18-she [...] History of dyspnea 12/15/2017 Overview (12/15/2017): 12/09/2017 [facility]- DR Cr Routine 2 views No acute pulmonary disease. Depression 10/21/2017 Hyperlipidemia 10/21/2017 Positive cardiac stress test 07/22/2017 Overview (10/21/2017): Pt follows with [facility] at [address] [facility] [address] in [place]. Scheduled with PVC Chronic daily headache 07/06/2017 Essential hypertension 06/08/2017 Anemia 05/07/2017 Overview (05/07/2017): Reports was treated with iron supplement- LMP 08/2016 Reports heavy periods in the past Arthropathy Overview (05/07/2017): many tests done in [place]- was told everything is normal Immunizations Immunization [...] 66 04/16/2018 1:07 PM EDT Temperature 36.1 C (96.9 F) 04/16/2018 1:07 PM EDT Respiratory Rate 12 04/16/2018 1:07 PM EDT Oxygen Saturation 98% 02/01/2018 4:05 PM EDT Inhaled Oxygen Concentration - - Weight 95.7 kg (211 lb) 04/16/2018 1:07 PM EDT Height 158 cm (5' 2.21 ) 04/16/2018 1:07 PM EDT Body Mass Index 38.34 04/16/2018 1:07 PM EDT Plan of Treatment Not on file Insurance [facility]
[2025-01-18 11:26] LABS: Hemoglobin 13.9 g/dl (12.0-16.0); Imm Gran Abs Auto 0.02 X10*3/uL (0.00-0.03); Imm Gran Pct Auto 0.3 % (0.0-0.4); Lymphocytes Absolute Auto 1.7 X10*3/uL (1.2-4.9); MANUAL DIFF FLAG SCAN; NRBC Abs Auto 0.000 X10*3/uL (0.0-0.012); NRBC Pct Auto 0.0 /100WBC (0.0-0.2); PLT CLUMP 1; SCAN SMEAR FLAG 1
[2025-01-18 11:28] LABS: Hematocrit 40.8 % (37.0-47.0); Mean Corpuscular HGB Conc 34.1 g/dl (31.0-35.0); Mean Corpuscular Hemoglobin 28.1 pg (27.0-33.0); Mean Corpuscular Volume 82.4 fL (80.0-98.0); Red Blood Count 4.95 X10*6/uL (4.20-5.50)
[2025-01-18 11:31] LABS: Hemoglobin A1C 146.0522 umol/L; Total Hemoglobin (HGBA1C) 3584.5625 umol/L
[2025-01-18 11:32] LABS: White Blood Count 6.2 X10*3/uL (4.8-10.8)
[2025-01-18 12:30] LABS: Alanine Aminotransferase 20 U/L (0-31); Albumin Level 4.5 g/dL (3.5-5.0); Alkaline Phosphatase 102 U/L (39-117); Anion Gap 10 (12-20); Aspartate Amino Transferase 24 U/L (5-31); Blood Urea Nitrogen 16 mg/dL (9-16); Calcium 9.1 mg/dL (8.4-10.2); Carbon Dioxide 27 mmol/L (22-29); Chloride 108 mmol/L (96-108); Cholesterol 120 mg/dL (<200); Estimated Glomerular Filt Rate > 60; HDL Cholesterol 35 mg/dL (>40); Magnesium 2.1 mg/dL (1.6-2.6); Potassium 4.0 mmol/L (3.3-5.1); Sodium 141 mmol/L (135-145); Total Protein 7.0 g/dL (6.5-8.0); Triglycerides 106 mg/dL (<150)
[2025-01-18 12:35] LABS: HBS Num1 0.56 mIU/mL (0-7.99); HBc Num1 0.06 S/CO (0.00-0.79); HBsAGNum1 0.32 S/CO (0.00-0.99); HIV Num 1 0.07 S/CO (0.00-0.99); Hepatitis B Surface Antigen Negative (Negative); ~HepC Num1 0.16 S/CO (0.00-0.79); ~Hepatitis B Surface Antibody NONREACTIVE (Nonreactive); ~Hepatitis C Antibody Nonreactive (Nonreactive)
[2025-01-18 12:41] LABS: Vitamin B12 751 pg/mL (200-900)
== END 2025-01-18 09:24 | disposition home or self-care (01) ==
LOC: HO.HHCL 09:23
PROVIDERS: PCP Internal Medicine; Visit Provider Emergency Medicine
DX: M79.89 Other specified soft tissue disorders (principal); M25.471 Effusion, right ankle; I10 Essential (primary) hypertension
CPT/HCPCS: 36415; 80053; 80061; 82607; 83036; 83735; 84443; 85025; 86592; 86704; 86706; 86803; 87340; 87389

== ENCOUNTER 2025-02-13 11:53 | Outpatient (REF) | payer MEDICAID, SELFPAY ==
--- NOTE | ~2025-02-13 | XR_ITS ---
EXAMINATION: XR LUMBAR SPINE 4 OR MORE VIEWS HISTORY: chronic LBP COMPARISON: There are no prior studies for comparison. FINDINGS: AP, lateral, bilateral oblique, and coned down views of the lumbar spine are submitted. Osseous mineralization is normal. Five nonrib-bearing lumbar vertebral bodies are identified, maintaining normal height and alignment without evidence of fracture or spondylolisthesis. The intervertebral disc spaces are preserved. The posterior elements are intact. There is no spondylolysis. There is a 1.1 cm calcification overlying the lower pole of the right renal shadow which likely represents a renal calculus. XR/XR lumbar spine 4V min IMPRESSION: 1. Unremarkable examination of the lumbar spine. 2. Probable 1.1 cm left lower pole renal calculus. Electronically signed by: Kip Love MD 02/13/2025 01:34 PM EDT
--- NOTE | ~2025-02-13 | XR_ITS ---
EXAMINATION: XR KNEE 4 OR MORE VIEWS LEFT HISTORY: left knee OA/edema COMPARISON: There are no prior studies available for comparison. FINDINGS: Four views of the left knee are submitted. Osseous mineralization is normal. There is no fracture or dislocation. There is mild to moderate osteoarthritis of the patellofemoral compartment and mild osteoarthritis of the medial and lateral compartments with joint space narrowing. The soft tissues are unremarkable. There is no joint effusion. XR/XR knee LT 4V IMPRESSION: Osteoarthritis of the left knee as described. Electronically signed by: Kip Love MD 02/13/2025 01:30 PM EDT
--- OUTSIDE RECORDS SUMMARY | 2025-02-13 13:01 | XMS_ITS | Clinical Summary ---
Author Organization [facility] Address [address] [place] [address] Care Team Providers Care Donor Services Manager Name Role Phone Joseph De León MD Primary Care Provider [phone] Family History Medical History Relation Name Comments [...] Vaccine ( - 2023-2 5 season) 2024 Depression Screening 07/20/2024 Influenza Vaccine (#1) 2025 HIB Vaccines Aged [...] age to complete this topic Care Teams Donor Services Manager Relationship Specialty Start Date End Date Joseph De León MD [address] [place] [address] [id number] [place] [address] PCP - General Internal Medicine 06/10/20
--- OUTSIDE RECORDS SUMMARY | 2025-02-13 13:01 | XMS_ITS | Clinical Summary ---
Author Organization [facility] Address [address] [place] [phone] Phone Care Team Providers Care Import Dispatcher Name Role Phone Pcp, Unknown Primary Care Provider Unavailabl e Allergies Active Allergy Reactions Criticality Noted Date Comments Penicillin G Rash Low 05/07/2017 Medications PROAIR HFA 90 mcg/actuation inhaler 1 Active FREESTYLE LITE Strp strips CHECK BLOOD GLUCOSE DAILY DIRECTED 1 Active diclofenac sodium (VOLTAREN) 1 % Gel APPLY 2 GRAMS TOPICALLY TO THE AFFECTED AREA FOUR TIMES DAILY NEEDED FOR PAIN APPLY TO AFFECED AREA. NOT TO EXCEED 8 GM DAILY 1 Active ergocalciferol (DRISDOL) 50,000 unit capsule Take 50,000 Units by mouth. Active furosemide (LASIX) 20 MG tablet TOME SRI TABLETA POR V A ORAL TODOS LOS D 1 Active gabapentin (NEURONTIN) 300 MG capsule Take 600 mg by mouth 4 (four) times a day. 1 Active metFORMIN (GLUCOPHAGE) 500 MG tablet TAKE 1 TABLET BY MOUTH EVERY DAY AT SUPPER 1 Active metoprolol tartrate (LOPRESSOR) 100 MG tablet Take 100 mg by mouth daily. 1 Active montelukast (SINGULAIR) 10 mg tablet TOME SRI TABLETA TODOS LOS D 1 Active rosuvastatin (CRESTOR) 10 MG tablet TOME SRI TABLETA TODOS LOS D 1 Active VIIBRYD 20 mg Tab TOME SRI TABLETA POR V A ORAL CADA MA ANGELINE AFTER A MEAL Active Active Problems Problem Noted Date Diagnosed Date Flat foot 04/17/2021 Plantar fasciitis 04/17/2021 Tendonitis, Achilles, left 04/17/2021 Social History Tobacco Use Types Packs/Day Years Used Date Smoking Tobacco: Never Smokeless Tobacco: Never Alcohol Use Standard Drinks/Week Comments Yes 0 (1 standard drink = 0.6 oz pur e alcohol) occ Education Answer Date Recorded Are you interested in more education? Not on henry e 11/14/2022 Are you concerned about learning? Not on file 11/14/2022 No 11/14/2022 No 11/14/2022 Digital Access Answer Date Recorded No 12/13/2022 No 12/13/2022 No 12/13/2022 Reliable internet access at home? Not on file 12/13/2022 Device with a working camera? Not on file Comments Unknown Sex and Gender Information Value Date Recorded Sex Assigned at Not on file Legal Sex Female 9:33 AM EDT Gender Identity Not on file Sexual Orientation Not on file Last Filed Vital Signs Vital Sign Reading Time Taken Comments Blood Pressure 118/64 01/30/2021 2:44 PM EDT Pulse 67 01/30/2021 2:44 PM EDT Temperature - - Respiratory Rate - - Oxygen Saturation - - Inhaled Oxygen Concentration - - Weight 89.8 kg (198 lb) 04/16/2021 8:58 AM EDT p t reported Height 154.9 cm (5' 1 ) 04/16/2021 8:58 AM EDT Body Mass Index 37.41 04/16/2021 8:58 AM EDT Plan of Treatment Health Maintenance Due Date Last Done Comments CREATININE LEVEL 1965 LIPID PANEL 1967 DEPRESSION SCREENING 1979 HEPATITIS C SCREENING 12/09/1985 HIV ONE-TIME SCREENING (18-6 5 YEARS) 12/09/1985 PAP SMEAR 12/09/1988 MAMMOGRAM 2007 COLOGUARD 12/09/2012 COLONOSCOPY 12/09/2012 COLORECTAL CANCER SCREENING 12/09/2012 FIT TEST 12/09/2012 FOBT 12/09/2012 SIGMOIDOSCOPY 12/09/2012 VIRTUAL COLONOSCOPY 12/09/2012 PNEUMOCOCCAL VACCINES (50+ years) (1 of 1 - PCV) 12/09/2017 ZOSTER VACCINES (1 of 2) 12/09/2017 COVID-19 VACCINE (3 2023-2 5 season) 2024 10/20/2020, 09/29/2020 Adult Td,Tdap Booster 11/15/2030 11/15/2020 , 05/07/2017 SMOKING STATUS SCREENING (On ce After 26 Yrs) Completed 04/16/2021 HEPATITIS A VACCINES Aged Out No long er eligible based on patient's age to complete this topic HIB VACCINES Aged Out No longer eligi ble based on patient's age to complete this topic MENINGOCOCCAL VACCINES (ACWY) Aged Out No longer eligible based on patient's age to complete this topic MENINGOCOCCAL VACCINES (B) Aged Out N o longer eligible based on patient's age to complete this topic Medical Devices Not on file Insurance [facility] Care Teams Import Dispatcher Relationship Specialty Start Date End Date Pcp, Unknown PCP - General 02/14/22 Additional Source Comments The information contained in this document represents components of the legal health record. It is not the complete legal health record.[facility]
--- OUTSIDE RECORDS SUMMARY | 2025-02-13 13:01 | XMS_ITS | Encounter Summary ---
Author Organization [facility] Address [address] [place] [address] Care Team Providers Care Fitness Supervisor Name Role Phone Cathleen Gill WIRE REPAIRER Primary Care Provider [phone] Encounter Details Date Type Department Care Team ([facility] st Contact Info) Description 06/15/[address] [phone] Slim [phone] [place] [address] Social History Tobacco Use Types Packs/Day Years [...] on filedocumented in this encounter Care Teams Fitness Supervisor Relationship Specialty Start Date End Date Cathleen Gill NP [address] [place] [address] PCP - General Internal Medicine 10/21/17 04/26/18 documented as of this encounter
== END 2025-02-13 11:54 | disposition home or self-care (01) ==
LOC: HO.HHCX 11:53
PROVIDERS: PCP Internal Medicine; Visit Provider Internal Medicine
DX: M17.12 Unilateral primary osteoarthritis, left knee (principal); M54.50 Low back pain, unspecified; G89.29 Other chronic pain
CPT/HCPCS: 72110; 73564

== ENCOUNTER → 2025-02-13 12:28 | Outpatient (BNV) | payer MEDICAID, SELFPAY | PROVIDERS: PCP Internal Medicine; Visit Provider Radiology Diagnostic Radiology | DX: N20.0 Calculus of kidney (principal); M17.12 Unilateral primary osteoarthritis, left knee | CPT/HCPCS: 72110; 73564 ==

== ENCOUNTER 2025-02-14 09:28 | Outpatient (AMB) | payer MEDICAID, SELFPAY ==
--- NOTE | 2025-02-14 09:35 | MHC.OFFVIS ---
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 States this started in November. Patient has discoloration on both feet. Accompanied by: Self / Same As Patient Allergies Penicillins Allergy (Severe, Verified 02/14/25 09:37) Unknown HPI HPI IMPROVEMENT LEADER/HHC referral for LE swelling: Details: Very pleasant 59-year-old female patient presents for painful varicose veins. Complaints include pain over varicosities, swelling of lower extremities, cramping, fatigue, and heaviness of the lower extremities. It has been affecting there daily activities including walking. It is noted more so in right leg. Patient denies any previous venous surgery or injections. Patient denies any history of DVT/ PE. Patient denies any history of phlebitis. Trial of compression includes - [id number] They now present for vascular evaluation regarding their varicose veins. Review of Systems Const Reports as per HPI ENT Reports no additional complaints Card Denies chest pain, Denies chest pain at rest and Denies chest pain with activity Resp Denies chest congestion and Denies cough GI Reports no additional complaints Musc Details: pain over varicosities, aching of lower extremities, swelling, cramping, heaviness and tiredness, itching Denies abnormal gait Skin/Breast Reports pruritus and Denies wounds Neuro Reports no additional complaints and Denies abnormal gait Psych Denies no additional complaints Physical Exam Const General: cooperative, healthy appearing and comfortable Orientation/consciousness: oriented to person, oriented to place and oriented to time Neck Carotids: no bruits Chest Chest palpation & inspection: normal inspection of the chest and normal palpation of entire chest wall Resp Effort & Inspection: normal respiratory effort and able to speak in complete sentences Cardio Rate: regular rate Heart sounds: S1 normal heart sound present and S2 normal heart sound present Peripheral pulses: Peripheral pulses 2+ throughout GI Inspection: Yes normal to inspection Skin Other: +2 edema CEAP Classification C4 - skin color changes Ep - Etiology Primary As - superficial veins P - reflux General skin exam: dry skin Neuro General: oriented to person, oriented to place and oriented to time Extrem Right lower extremity: full ROM, normal capillary refill and edema Left lower extremity: full ROM, normal capillary refill and edema Psych Mental Status: mental status grossly normal Assessment & Plan Assessment & Plan (1) Varicose veins of right lower extremity with inflammation: Code(s): I83.11 - Varicose veins of right lower extremity with inflammation Category: Medical Plan: In short, the patient has evidence of venous insufficiency. I have discussed the pathophysiology with the patient. In addition I have provided informational material regarding venous disease to the patient. We have discussed conservative measures including compression, elevation, and exercise. I have also provided a handout regarding appropriate use of compression stockings and where to purchase good compression stockings as well. I have taken the liberty of ordering venous insufficiency testing with the patient. They will follow up with me after testing. The patient had an opportunity to ask questions regarding the treatment plan. All questions were answered. Imaging studies, laboratory studies and physical exam results were discussed and reviewed in detail. No major barriers to understanding were identified. The patient expressed understanding and agreement with the above treatment plan. The patient is aware they should contact our office by phone for worsening of the current condition or the appearance of new symptoms. Thank you for allowing me to participate in the vascular care of this patient. If you have any questions or concerns regarding the treatment for the above condition please do not hesitate to contact me. The office telephone contact is [phone]. This note is constructed using voice recognition software. While every effort has been made to ensure accuracy, correctional substance abuse counselor errors may have been included. Thank you for allowing me to participate in the care of your patient. Yours sincerely, Karl Garcia MD, FACS, R.P.V.I. Orders: Orders US venous duplex LE BI Today I83.11 - Varicose veins of right lower extremity with inflammation Coding Level of Care Code New Pt Level 4 (89408) Diagnoses Varicose veins of right lower extremity with inflammation I83.11
--- OUTSIDE RECORDS SUMMARY | 2025-02-14 10:00 | XMS_ITS | Encounter Summary ---
Author Organization [facility] Address [address] [place] [address] Care Team Providers Care Flour Mixer Name Role Phone Cathleen Gill COMMUNICATIONS MARKETING INTERN Primary Care Provider [phone] Encounter Details Date Type Department Care Team ([facility] st Contact Info) Description 06/15/[address] [phone] Slim Lopez [phone] [place] [address] Social History Tobacco Use Types Packs/Day Years [...] on filedocumented in this encounter Care Teams Flour Mixer Relationship Specialty Start Date End Date Cathleen Gill NP [address] [place] [id number] PCP - General Internal Medicine 10/21/17 04/26/18 documented as of this encounter
--- OUTSIDE RECORDS SUMMARY | 2025-02-14 10:00 | XMS_ITS | Clinical Summary ---
Author Organization [facility] Address [address] [place] [phone] Phone Care Team Providers Care Billet Heater Name Role Phone Pcp, Unknown Primary Care [...] topic Medical Devices Not on file Insurance [facility] Care Teams Billet Heater Relationship Specialty Start Date End Date Pcp, Unknown PCP - General 02/14/22 Additional Source Comments The information contained in this document represents components of the legal health record. It is not the complete legal health record.[facility]
--- OUTSIDE RECORDS SUMMARY | 2025-02-14 10:00 | XMS_ITS | Clinical Summary ---
Author Organization [facility] Address [address] [place] [address] Care Team Providers Care Crusher Loader Operator Name Role Phone Joseph De León MD Primary Care Provider [phone] Family History Medical History Relation Name Comments [...] age to complete this topic Care Teams Crusher Loader Operator Relationship Specialty Start Date End Date Joseph De León MD [address] [place] [address] [id number] [place] [address] PCP - General Internal Medicine 06/10/20
== END 2025-02-14 09:52 | disposition home or self-care (01) ==
LOC: HO.HVS 09:29
PROVIDERS: PCP Internal Medicine; Visit Provider Surgery Vascular Surgery
DX: I83.11 Varicose veins of right lower extremity with inflammation (principal)
CPT/HCPCS: 99204

== ENCOUNTER → 2025-02-14 09:28 | Outpatient (BNVA) | payer MEDICAID, SELFPAY | PROVIDERS: PCP Internal Medicine; Visit Provider Surgery Vascular Surgery | DX: I83.11 Varicose veins of right lower extremity with inflammation (principal) | CPT/HCPCS: 99202 ==

== ENCOUNTER 2025-03-31 09:46 | Outpatient (REF) | payer MEDICAID, SELFPAY ==
--- NOTE | ~2025-03-31 | US_ITS ---
EXAMINATION: US LOWER EXTREMITY VENOUS (REFLUX EXAM), BILATERAL CLINICAL INFORMATION: Venous incompetence COMPARISON: None. TECHNIQUE: Color flow triplex imaging and compression Doppler was performed to evaluate both the deep and the superficial systems bilaterally. To evaluate the superficial system, the examination was performed in the upright position. Color-flow Doppler ultrasound and compression ultrasound were utilized. In addition, maneuvers were utilized to demonstrate reflux. FINDINGS: 1. DEEP VENOUS ULTRASOUND OF THE RIGHT LOWER EXTREMITY: Common Femoral Vein: Compressible, normal respiratory variation and augmented flow. Femoral Vein: Compressible, normal color flow and augmentation. Popliteal Vein: Compressible, normal augmentation. Deep Reflux: There is no evidence of reflux in the deep system in either the common femoral vein, superficial femoral or the popliteal vein. 2. SUPERFICIAL ULTRASOUND WITH DOPPLER OF RIGHT LOWER EXTREMITY: GREAT SAPHENOUS VEIN: Saphenofemoral Junction: 0.7 cm; Reflux: 0 ms Proximal Thigh: 0.6 cm; Reflux: 0 ms Mid Thigh: 0.3 cm; Reflux: 0 ms Distal Thigh: 0.2 cm; Reflux: 0 ms At Knee: 2.4 cm; Reflux: 0 ms Below Knee/Proximal Calf: 0.3 cm; Reflux: 0 ms Mid Calf: 0.2 cm; Reflux: 0 ms Ankle/Distal Calf: 0.2 cm; Reflux: 0 ms Lateral accessory GREAT SAPHENOUS VEIN: Saphenofemoral Junction: 0.2 cm; Reflux: 0 ms Mid Thigh: 0.1 cm; Reflux: 0 ms SMALL SAPHENOUS VEIN: Drainage: Thigh extension Saphenopopliteal Junction: 2 cm; Reflux: 0 ms Mid calf: 0.2 cm; Reflux: 0 ms Distal: 0.2 cm; Reflux: > 2400 ms VEIN OF GIACOMINI: Size: 0.2 cm Reflux: 0 ms PERFORATORS: Location: Small saphenous vein, proximal Size: 0.2 cm Reflux: 0 ms VARICOSITIES > 3mm: Location: None Imaged 3. DEEP VENOUS ULTRASOUND OF THE LEFT LOWER EXTREMITY: Common Femoral Vein: Compressible, normal respiratory variation and augmented flow. Femoral Vein: Compressible, normal color flow and augmentation. Popliteal Vein: Compressible, normal augmentation. Deep Reflux: There is no evidence of reflux in the deep system in either the common femoral vein, superficial femoral or the popliteal vein. 4. SUPERFICIAL ULTRASOUND WITH DOPPLER OF LEFT LOWER EXTREMITY: GREAT SAPHENOUS VEIN: Saphenofemoral Junction: 0.7 cm; Reflux: 0 ms Proximal Thigh: 0.5 cm; Reflux: 0 ms Mid Thigh: 0.3 cm; Reflux: 0 ms Distal Thigh: 0.1 cm; Reflux: 0 ms At Knee: 0.1 cm; Reflux: 0 ms Below Knee/Proximl calf: 0.1 cm; Reflux: 0 ms Mid Calf: 0.2 cm; Reflux: 0 ms Distal Calf/Ankle: 0.2 cm; Reflux: 0 ms Lateral accessory GREAT SAPHENOUS VEIN: Saphenofemoral Junction: 0.3 cm; Reflux: 0 ms Mid Thigh: 0.2 cm; Reflux: 0 ms SMALL SAPHENOUS VEIN: Drainage: Thigh extension Saphenopopliteal Junction: 0.2 cm; Reflux: 0 ms Mid calf: 0.1 cm; Reflux: 0 ms Distal calf: 0.1 cm; Reflux: 0 ms VEIN OF GIACOMINI: Size: NA Reflux: NA PERFORATORS: Location: Greater saphenous vein, proximal calf Size: 0.1 cm Reflux: 0 ms VARICOSITIES > 3mm: Location: None Imaged US/US venous duplex LE BI IMPRESSION: Right: Venous incompetence involving small saphenous vein in the distal calf Left: No venous reflux is demonstrated. Electronically signed by: Vince Villavicencio MD 03/31/2025 10:58 AM EDT
--- OUTSIDE RECORDS SUMMARY | 2025-03-31 10:54 | XMS_ITS | Encounter Summary ---
Author Organization [facility] Address [address] [place] [address] Care Team Providers Care Cover Stripper Name Role Phone Cathleen Gill SHUTTLE SPOTTER Primary Care Provider [phone] Encounter Details Date Type Department Care Team ([facility] st Contact Info) Description 06/15/[address] [phone] Slim Lopez [phone] [place] [address] Social History Tobacco Use Types Packs/Day Years [...] on filedocumented in this encounter Care Teams Cover Stripper Relationship Specialty Start Date End Date Cathleen Gill NP [address] [place] [id number] PCP - General Internal Medicine 10/21/17 04/26/18 documented as of this encounter
--- OUTSIDE RECORDS SUMMARY | 2025-03-31 10:55 | XMS_ITS | Clinical Summary ---
Author Organization [facility] Address [address] [place] [address] Care Team Providers Care Telephone Operators Supervisor Name Role Phone Joseph De León MD Primary Care Provider [phone] Family History Medical History Relation Name Comments [...] 12/09/2017 Zoster Vaccines (1 of 2) 12/09/2017 Depression Screening 07/20/2024 COVID-19 Vaccine (1 - 2023-2 5 season) 2025 Influenza Vaccine (#1) 2025 HIB Vaccines Aged [...] age to complete this topic Care Teams Telephone Operators Supervisor Relationship Specialty Start Date End Date Joseph De León MD [address] [place] [address] [id number] [place] [address] PCP - General Internal Medicine 06/10/20
--- OUTSIDE RECORDS SUMMARY | 2025-03-31 10:55 | XMS_ITS | Clinical Summary ---
Author Organization [facility] Address [address] [place] [phone] Phone Care Team Providers Care Green Chain Marker Name Role Phone Pcp, Unknown Primary Care [...] 12/09/2017 ZOSTER VACCINES (1 of 2) 12/09/2017 INFLUENZA VACCINE (#1) 2025 8, 05/07/2017 COVID-19 VACCINE (2024-2 6 season) 2025 10/20/2020, 09/29/2020 Adult Td,Tdap Booster 11/15/2030 11/15/2020 [...] topic Medical Devices Not on file Insurance [facility] Care Teams Green Chain Marker Relationship Specialty Start Date End Date Pcp, Unknown PCP - General 02/14/22 Additional Source Comments The information contained in this document represents components of the legal health record. It is not the complete legal health record.[facility]
--- OUTSIDE RECORDS SUMMARY | 2025-03-31 10:55 | XMS_ITS | Clinical Summary ---
Author Organization [facility] Address [address] [place] [address] Care Team Providers Care Tin Whiz Machine Operator Name Role Phone Unavailable Primary Care [...] ordered by cardiology Chronic diastolic heart failure ([facility]) 05/03/2018 Overview (05/03/2018): Seen by cardiology-last follow-up [...] History of dyspnea 12/15/2017 Overview (12/15/2017): 12/09/2017 [facility]- DR Cr Routine 2 views No acute pulmonary disease. Depression 10/21/2017 Hyperlipidemia 10/21/2017 Positive cardiac stress test 07/22/2017 Overview (10/21/2017): Pt follows with [facility] at [address] in [place]. Scheduled with PVC Chronic daily headache 07/06/2017 [...] Treatment Not on file Insurance [facility]
--- OUTSIDE RECORDS SUMMARY | 2025-03-31 10:55 | XMS_ITS | Clinical Summary ---
Author Organization [employer] Address [address] [facility] [address] [place] [address] Care Team Providers Care Cable Installer Repairer Helper Name Role Phone Sandy Whitley MD Primary Care Provider + Allergies Active Allergy Reactions Criticality Noted Date Comments Penicillin G Rash Low 05/07/2017 Penicillins Hives 09/28/2024 Medications * This document contains information received from the source organization and may not represent a complete record from that organization. metoprolol succinate XL (Toprol-XL) 100 MG 24 hr tablet Take 1 tablet by mouth Once per day. 8 Active montelukast (Singulair) 10 MG tablet Take 10 mg by mouth at bedtime. Active rosuvastatin (Crestor) 10 MG tablet Take 10 mg by mouth Once per day. Active albuterol 108 (90 Base) MCG/ACT inhaler Inhale 2 puffs every 6 (six) hours if needed for wheezing. Active cyclobenzaprine (Flexeril) 10 MG tablet Take 1 tablet (10 mg) by mouth 3 times daily for 10 days. 30 tablet 5 Active meloxicam (Mobic) 15 MG tablet TAKE 1 TABLET (15 MG) BY MOUTH ONCE PER DAY. 30 tablet 5 Active Acetaminophen Extra Strength 500 MG tablet TAKE 1 TABLET (500 MG) BY MOUTH EVERY 6 (SIX) HOURS IF NEEDED FOR MILD PAIN. 120 tablet 5 Active acetaminophen (Tylenol Extra Strength) 500 MG tablet Take 1 tablet (500 mg) by mouth every 6 (six) hours if needed for mild pain. 120 tablet 5 03/15/20 25 Discontinued Active Problems Problem Noted Date Diagnosed Date Mild major depression, single episode 03/08/2025 SISI (generalized anxiety disorder) 03/08/2025 Chronic bilateral low back pain without sciatica 02/13/2025 Assessment & Plan (02/14/2025 3:13 PM EDT): Refer to PT Use meloxicam daily x 2 weeks and Tylenol as needed Primary osteoarthritis of left knee 02/13/2025 Assessment & Plan (02/14/2025 3:11 PM EDT): Take Tylenol or meloxicam as needed Refer to PT and follow-up with me in 3 to 4 months Mild intermittent asthma without complication Assessment & Plan (02/14/2025 3:14 PM EDT): Fairly controlled, will order PFTs and adjust medications if needed Continue Singulair for now and keep track of exacerbations, patient is a non- smoker Extensor tendinitis of foot 11/29/2024 Assessment & [...] 10/20/2024 Overview (10/20/2024): many tests done in [place]- was told everything is normal Flat foot [...] History of dyspnea 12/15/2017 Overview (10/20/2024): 12/09/2017 [facility] Cr Routine 2 views No acute pulmonary disease. Depression 10/21/2017 Assessment & Plan (02/14/2025 3:09 PM EDT): PHQ-9 is 7, she has history of depression in the past, her provider moved out of the clinic. Referred again to counseling, will continue to follow-up closely and restart duloxetine if indicated in 4 to 6 weeks Patient feels safe at home, she cannot reach out for safety with our walk-in clinic as needed depression symptoms, she was also given crisis number. Hyperlipidemia 10/21/2017 Assessment & Plan (02/14/2025 3:08 PM EDT): LDL is at goal: Continue rosuvastatin 10 mg and follow lipids and LFTs in 1 year. Recommended moderate amount of exercise and increase consumption of fruit, vegetables, fish and high fiber foods. Should decrease consumption of highly saturated fats or trans fats. Positive cardiac stress test 07/22/2017 Overview (10/20/2024): Pt follows with [facility] at [address] [facility] [address] in [place]. Scheduled with PVC Chronic daily headache 07/06/2017 Essential hypertension 06/08/2017 Assessment & Plan (02/14/2025 3:13 PM EDT): Seems to be doing well today on metoprolol only. History of recently uncontrolled hypertension, advised to check BP at home daily. Follow up with the Nurse for blood pressure check in 2 weeks. Continue with a low sodium diet and regular exercise as tolerated. For BP < or = to 139/89 (or 129/79 for diabetic patients) continue current medication regimen and follow up with PCP in 8 weeks. For BP > or = to 140/90 (or 130/80 for diabetic patients) Start new medication Lisinopril 2.5 mg once a day Follow up with the Nurse for a second blood pressure check in 2-4 weeks if BP 140-150/90+ (or 130-150/80+ for diabetic patients). Refer to CD[facility] for BP >150/90+. If second Nurse visit is needed: For BP < or = to 139/89 (or 129/79 for diabetic patients) continue current medication regimen and follow up with the PCP in 8 weeks. For BP > or = to 140/90 (or 130/80 for diabetic patients) increase Lisinopril to 5 mg once a day and follow-up with PCP in 6 to 8 weeks Anemia 05/07/2017 Overview (10/20/2024): Reports was treated with iron supplement- [facility] 08/2016 Reports heavy periods in the past Encounters * This document contains information received from the source organization and may not represent a complete record from that organization. Date Type Department Care Team Description 03/16/2025 Telephone [facility] [address] [place] [phone] Sandy Whitley MD May03/13/2025 Refill [facility] [address] [place] [address] Sandy Whitley MD 03/01/2025 Travel 02/27/2025 9:30 AM EDT Clinical Support [facility] [address] [place] [address] Ria Almanza, TUCKER Essential hypertension 02/27/2025 Travel 02/26/2025 Travel 02/25/2025 Refill [facility] [address] [place] [address] Sandy Whitley MD 02/22/2025 Results Follow-Up [facility] [address] [place] [address] Sandy Whitley MD XR Lumbar Spine Complete 4+ Views 02/13/2025 10:45 AM EDT Office Visit [facility] [address] [place] [phone] Sandy Whitley MD Pure hypercholesterolemia (Primary Dx); Moderate episode of recurrent major depressive disorder (CMS/HCC); Mild intermittent asthma without complication; Chronic bilateral low back pain without sciatica; Primary osteoarthritis of left knee; Essential hypertension 02/13/2025 Travel 02/09/2025 Telephone [facility] [address] [place] [phone] Sandy Whitley MD chart prep 02/06/2025 Travel 02/03/2025 Patient Outreach [address] [phone] Sandy Whitley MD Care Coordination (CHW outreach for SDOH housing search-referral completed ) 02/03/2025 Patient Outreach [address] [phone] Sandy Whitley MD Pre-visit Planning (SDOH screening negative and tobacco screening negative) 01/26/2025 Refill [facility] [address] [place] [phone] Sandy Whitley MD 01/18/2025 Telephone [facility] [address] [place] [phone] Ronnell Johnson MD 01/17/2025 8:40 AM EDT Office Visit [facility] [address] [place] [phone] Ronnell Johnson MD Swelling of right foot (Primary Dx); Right ankle swelling; Essential hypertension from Last 3 Months Immunizations Immunization Administration Dates Next Due Influenza injectable quadrivalent preservative f ree 04/16/2018,05/07/2017 Tdap 05/07/2017 Social History Tobacco Use Types Packs/Day Years Used Date Smoking Tobacco: Never Passive Smoke Exposure: Never Smokeless Tobacco: Never Tobacco Cessation:Counseling Given: Not Answered Alcohol Use Standard Drinks/Week Comments Never 0 (1 standard drink = 0.6 oz pur e alcohol) Depression Answer Date Recorded Patient Health Questionnaire-9 Score 7 02/13/2025 Patient Health Questionnaire-9 Score 7 02/13/2025 Last PHQ-9: Questionnaire Data Not on file 0 02/13/2025 Housing Stability Answer Date Recorded What is your housing situation today? I do not have housing (Staying with others, in a hotel, in a intermediate, living outside on the street, on a beach, in a car, or in a park 02/03/[address] you li ve. Do you have problems with any of the following? None of the above 02/03/2025 Food Insecurity Answer Date Recorded Within the past 12 months, y ou worried that your food would run out before you got money to buy more: Never True 02/03/2025 Within the past 12 months,th e food you bought just didn't last and you didn't have enough money to get more: Never True Transportation Answer Date Recorded In the past 12 months, has l ack of transportation kept you from medical appts, meetings, work or from getting things needed for daily living? No 02/03/2025 Utilities Answer Date Recorded In the past 12 months, has t he electric, gas, oil or water company threatened to shut off services in your home? No 02/03/2025 Depression Answer Date Recorded Patient Health Questionnaire-2 Score 2 02/13/2025 Internet Access Answer Date Recorded Internet Access Q1 Yes 02/03/2025 Internet Access Q2 Not on file 02/03/2025 Comments Unknown Sex and Gender Information Value Date Recorded Sex Assigned at Female 09/28/2024 6:13 PM EDT Legal Sex Female 10:05 AM EST Gender Identity Female 09/28/2024 6:13 PM EDT Sexual Orientation Straight 09/28/2024 6: 59 PM EDT Last Filed Vital Signs Vital Sign Reading Time Taken Comments Blood Pressure 136/70 02/27/2025 10:07 AM EDT Pulse 62 02/27/2025 10:07 AM EDT Temperature 36.6 C (97.9 F) 02/13/2025 10:50 AM EDT Respiratory Rate 16 02/13/2025 10:5 0 AM EDT Oxygen Saturation 97% 01/17/2025 8:44 AM EDT Inhaled Oxygen Concentration - - Weight 90.6 kg (199 lb 12.8 oz) 025 10:50 AM EDT Height 154.9 cm (5' 1 ) 02/13/2025 10:5 0 AM EDT Body Mass Index 37.75 02/13/2025 10:50 AM EDT Plan of Treatment Upcoming Encounters Date Type Department Care Team (Late st Contact Info) Description 05/26/2025 10:30 AM EST Office Visit [facility] [address] [place] [address] Sandy Whitley MD [address] [place], [place] [phone] 06/28/2025 2:00 PM EST Office Visit [facility] [address] [place] [address] Sheng Mcelroy Health Maintenance Due Date Last Done Comments CT Colonography 1965 Colonoscopy 1965 Colorectal Cancer Screening 1965 FIT DNA/Cologuard 1967 FIT 1965 FOBT 1965 Sigmoidoscopy 1967 Hepatitis B Vaccines (1 of 3 - 19+ 3-dose series) 12/09/1986 Pneumococcal Vaccine: 50+ Years (1 of 2 - PCV) 12/09/1986 Pap Smear 12/09/1988 Cervical Cancer Screening 12/09/1997 HPV/Cotest 12/09/1997 Mammogram 2007 Zoster Vaccines (1 of 2) 12/09/2017 COVID-19 Vaccine (1 - 2023-2 5 season) 2025 Influenza Vaccine (#1) 2025 8, 05/07/2017 Dental Oral Exam 06/03/2025 11/30/2024 Dental Prophylaxis 06/28/2025 12/26/2024 Dental X-Ray: Bitewings 12/01/2025 11/30/2024 Diabetes: Hemoglobin A1C 01/18/2026 01/18/2025 SDOH Screening 02/03/2026 02/03/2025 Alcohol/Substance Use Screening 02/13/2026 02/13/2025 Depression Screening 02/13/2026 02/13/2025, 02/13/2025 Disability Screening 02/13/2026 02/13/2025 Tobacco Screening 02/13/2026 02/13/2025 DTaP/Tdap/Td Vaccines (2 - T d or Tdap) 05/07/2027 05/07/2017 Dental X-Ray: Full Mouth 12/02/2027 11/30/2024 Lipid Panel 01/18/2030 01/18/2025 RSV Patients and Patients Aged 60 years or older (1 - 1-dose 75+ series) 12/09/2042 HIV Screening Completed 01/18/2025 Hepatitis C Screening Completed 01/18/2025 HIB Vaccines Aged Out No longer eligi [...] Name Priority Date/Time Associated Diagnosis Comments XR KNEE 4+ VIEWS LEFT Routine 02/13/2025 12:00 PM EDT Primary osteoarthritis of left knee XR LUMBAR SPINE COMPLETE 4+ VIEWS Routine 02/13/2025 11:53 AM EDT Chronic bilateral low back pain without sciatica SLIDE REVIEW Routine 01/18/2025 9:28 AM EDT HEMOGLOBIN A1C Routine 01/18/2025 9:28 AM EDT Swelling of right foot Right ankle swelling Essential hypertension MAGNESIUM Routine 01/18/2025 9:28 AM EDT Swelling of right foot Right ankle swelling Essential hypertension LIPID PANEL, STANDARD Routine 01/18/2025 9:28 AM EDT Swelling of right foot Right ankle swelling Essential hypertension RPR (MONITOR) W/REFL TITER Routine 01/18/2025 9:28 AM EDT Swelling of right foot Right ankle swelling Essential hypertension HIV 1/2 ANTIGEN/ANTIBODY, FOURTH GENERATION W/RFL Routine 01/18/2025 9:28 AM EDT Swelling of right foot Right ankle swelling Essential hypertension HEPATITIS C AB W/REFL TO HCV RNA, QN, PCR Routine 01/18/2025 9:28 AM EDT Swelling of right foot Right ankle swelling Essential hypertension HEPATITIS B SURFACE ANTIGEN, EIA Routine 01/18/2025 9:28 AM EDT Swelling of right foot Right ankle swelling Essential hypertension HEPATITIS B SURFACE ANTIBODY, QUALITATIVE Routine 01/18/2025 9:28 AM EDT Swelling of right foot Right ankle swelling Essential hypertension HEPATITIS B CORE AB TOTAL Routine 01/18/2025 9:28 AM EDT Swelling of right foot Right ankle swelling Essential hypertension VITAMIN B12 Routine 01/18/2025 9:28 AM EDT Swelling of right foot Right ankle swelling Essential hypertension TSH W/REFLEX TO FT4 Routine 01/18/2025 9 :28 AM EDT Swelling of right foot Right ankle swelling Essential hypertension COMPREHENSIVE METABOLIC PANEL Routine 01/18/2025 9:28 AM EDT Swelling of right foot Right ankle swelling Essential hypertension CBC WITH AUTO DIFFERENTIAL Routine 01/18/2025 9:28 AM EDT Swelling of right foot Right ankle swelling Essential hypertension PROPHYLAXIS - ADULT Routine 12/26/2024 3 :00 PM EDT INTRAORAL - COMPLETE SERIES OF RADIOGRAPHIC IMAGES Routine 11/30/2024 1:30 PM EDT PERIODIC ORAL EVALUATION - ESTABLISHED PATIENT Routine 11/30/2024 1:30 PM EDT from Last 3 Months or Most Recently Relevant to Health Maintenance Results * XR Knee 4+ Views Left (02/13/2025 12:00 PM EDT) Anatomical Region Laterality Modality Lower Extremities, Knee Left [facility] 02/13/2025 12:0 0 PM EDT Narrative 02/13/2025 1:33 PM EDT [facility] [address] [place] [address] XRay Report Signed Patient: Connie Hammonds MR#: [id number] : 1965 Acct:[id number] Age/Sex: 59 / F ADM Date: 02/13/25 Loc: [facility] Attending Dr: Sandy Whitley MD Ordering Physician: Sandy Whitley MD Date of Service: 02/13/25 Procedure(s): XR knee LT 4V Accession Number(s): [id number] cc: Sandy Whitley MD EXAMINATION: XR KNEE 4 OR MORE VIEWS LEFT HISTORY: left knee OA/edema COMPARISON: There are no prior studies available for comparison. FINDINGS: Four views of the left knee are submitted. Osseous mineralization is normal. There is no fracture or dislocation. There is mild to moderate osteoarthritis of the patellofemoral compartment and mild osteoarthritis of the medial and lateral compartments with joint space narrowing. The soft tissues are unremarkable. There is no joint effusion. XR/XR knee LT 4V IMPRESSION: Osteoarthritis of the left knee as described. Electronically signed by: Kip Love MD 02/13/2025 01:30 PM EDT Dictated By: Kip Love MD Signed By: <Electronically signed by Kip Love MD in OV> 02/13/25 1330 DD/ 1200 TD/TT: 02/13/25 1200 Raw Stock Machine Loader: Procedure Note Donotuseinterpreter, Image - 02/13/2025 [facility] [address] [place] [address] XRay Report Signed Patient: Valentina HammondsR#: [id number] : 1965Acct:[id number] Age/Sex: 59 / FADM Date: 02/13/25 Loc: [facility] Attending Dr: Sandy Whitley MD Ordering Physician: Sandy Whitley MD Date of Service: 02/13/25 Procedure(s): XR knee LT 4V Accession Number(s): [id number] cc: Sandy Whitley MD EXAMINATION: XR KNEE 4 OR MORE VIEWS LEFT HISTORY: left knee OA/edema COMPARISON: There are no prior studies available for comparison. FINDINGS: Four views of the left knee are submitted. Osseous mineralization is normal. There is no fracture or dislocation. There is mild to moderate osteoarthritis of the patellofemoral compartment and mild osteoarthritis of the medial and lateral compartments with joint space narrowing. The soft tissues are unremarkable. There is no joint effusion. XR/XR knee LT 4V IMPRESSION: Osteoarthritis of the left knee as described. Electronically signed by: Kip Love MD 02/13/2025 01:30 PM EDT Dictated By: Kip Love MD Signed By: <Electronically signed by Kip Love MD in OV> 02/13/25 1330 DD/ 1200 TD/TT: 02/13/25 1200 Raw Stock Machine Loader: us Sandy Whitley MD IMG XR PROCEDURES Final Result * XR Lumbar Spine Complete 4+ Views (02/13/2025 11:53 AM EDT) Anatomical Region Laterality Modality Spine, L-spine Radiographic Itzel ging 02/13/2025 11:5 3 AM EDT Narrative 02/13/2025 1:37 [place] [address] XRay Report Signed Patient: Connie Hammonds MR#: [id number] : 1965 Acct:[id number] Age/Sex: 59 / F ADM Date: 02/13/25 Loc: .[facility]X Attending Dr: Sandy Whitley MD Ordering Physician: Sandy Whitley MD Date of Service: 02/13/25 Procedure(s): XR lumbar spine 4V min Accession Number(s): [id number] cc: Sandy Whitley MD EXAMINATION: XR LUMBAR SPINE 4 OR MORE VIEWS HISTORY: chronic LBP COMPARISON: There are no prior studies for comparison. FINDINGS: AP, lateral, bilateral oblique, and coned down views of the lumbar spine are submitted. Osseous mineralization is normal. Five nonrib-bearing lumbar vertebral bodies are identified, maintaining normal height and alignment without evidence of fracture or spondylolisthesis. The intervertebral disc spaces are preserved. The posterior elements are intact. There is no spondylolysis. There is a 1.1 cm calcification overlying the lower pole of the right renal shadow which likely represents a renal calculus. XR/XR lumbar spine 4V min IMPRESSION: 1. Unremarkable examination of the lumbar spine. 2. Probable 1.1 cm left lower pole renal calculus. Electronically signed by: Kip Love MD 02/13/2025 01:34 PM EDT RP Dictated By: Kip Love MD Signed By: <Electronically signed by Kip Love MD in OV> 02/13/25 1334 DD/ 1153 TD/TT: 02/13/25 1200 Raw Stock Machine Loader: Procedure Note Donotuseinterpreter, Image - 02/13/[address] [address] XRay Report Signed Patient: Shayan Hammonds#: [id number] : 1965Acct:[id number] Age/Sex: 59 / FADM Date: 02/13/25 Loc: HO.[facility]X Attending Dr: Sandy Whitley MD Ordering Physician: Sandy Whitley MD Date of Service: 02/13/25 Procedure(s): XR lumbar spine 4V min Accession Number(s): [id number] cc: Sandy Whitley MD EXAMINATION: XR LUMBAR SPINE 4 OR MORE VIEWS HISTORY: chronic LBP COMPARISON: There are no prior studies for comparison. FINDINGS: AP, lateral, bilateral oblique, and coned down views of the lumbar spine are submitted. Osseous mineralization is normal. Five nonrib-bearing lumbar vertebral bodies are identified, maintaining normal height and alignment without evidence of fracture or spondylolisthesis. The intervertebral disc spaces are preserved. The posterior elements are intact. There is no spondylolysis. There is a 1.1 cm calcification overlying the lower pole of the right renal shadow which likely represents a renal calculus. XR/XR lumbar spine 4V min IMPRESSION: 1. Unremarkable examination of the lumbar spine. 2. Probable 1.1 cm left lower pole renal calculus. Electronically signed by: Kip Love MD 02/13/2025 01:34 PM EDT RP Dictated By: Kip Love MD Signed By: <Electronically signed by Kip Love MD in OV> 02/13/25 1334 DD/ 1153 TD/TT: 02/13/25 1200 Raw Stock Machine Loader: Sandy Whitley MD IMG XR PROCEDURES Final Result * Slide Review (01/18/2025 9:28 AM EDT) Slide Review VERIFIED [facility] 01/18/2025 9:28 AM EDT 01/18/2025 11:03 AM EDT Ronnell Johnson MD LAB BLOOD ORDERABLES Final Resul t Performing Organization Address City/[facility]/ZIP Co de Phone Number [facility] [address] [place] [address] [phone] * TSH with Reflex to Free T4 (01/18/2025 9:28 AM EDT) TSH reflex Free T4 1.29 0.32 - 4.0 uIU/mL [facility] Blood Venous blood specimen / Unknown 01/18/2025 9:28 AM EDT 01/18/2025 11:03 AM EDT Ronnell Johnson MD LAB BLOOD ORDERABLES Final Resul t Performing Organization Address [facility] Co de Phone Number [facility] [address] [place] [phone] * CBC auto differential (01/18/2025 9:28 AM EDT) White Blood Count 6.2 4.8 - 10.8 X10*3/uL [facility] Red Blood Count 4.95 4.20 - 5.50 X10*6/uL [facility] Hemoglobin 13.9 12.0 - 16.0 g/dl [facility] Hematocrit 40.8 37.0 - 47.0 % [facility] Mean Corpuscular Volume 82.4 80.0 - 98.0 fL [facility] Mean Corpuscular Hemoglobin 28.1 27.0 - 33.0 pg [facility] Mean Corpuscular HGB Conc 34.1 31.0 - 35.0 g/dl [facility] Red Cell Distribution Width 13.9 11.0 - 16.0 % [facility] Platelet Count TNP 160 - 400 X10*3/uL [facility] Comment:Platelet clumps note d. Platelet count will not be accurate.Recollecting the platelet count in a blue top tube mayeliminate platelet clumps. Order platelet count blue toptube. A lavender top tube must be drawn if CBC is required. Mean Platelet Volume TNP 9.4 - 12.3 fL [facility] Neutrophils Percent Auto 61.0 45 - 73 % [facility] Imm Gran Pct Auto 0.3 0.0 - 0.4 % [facility] Lymphocytes Percent Auto 28.0 20 - 40 % [facility] Monocytes Percent Auto 6.5 2 - 11 % [facility] Eosinophils Percent Auto 3.2 0 - 4 % [facility] Basophils Percent Auto 1.0 0 - 2 % [facility] NRBC Pct Auto 0.0 0.0 - 0.2 /100WBC [facility] Neutrophils Absolute Auto 3.8 2.0 - 8.3 x10*3/uL [facility] Imm Gran Abs Auto 0.02 0.00 - 0.03 X10*3/uL [facility] Lymphocytes Absolute Auto 1.7 1.2 - 4.9 X10*3/uL [facility] Monocytes Absolute Auto 0.4 0.1 - 1.2 X10*3/uL [facility] Eosinophils Absolute Auto 0.2 0.0 - 0.4 X10*3/uL [facility] Basophils Absolute Auto 0.1 0.0 - 0.2 X10*3/uL [facility] NRBC Abs Auto 0.000 0.0 - 0.012 X10*3/uL [facility] Blood Venous blood specimen / Unknown 01/18/2025 9:28 AM EDT 01/18/2025 11:03 AM EDT us Ronnell Johnson MD LAB BLOOD ORDERABLES Edited Resu lt - Final Performing Organization Address [facility] Co de Phone Number [facility] [address] [place] [phone] * Hepatitis C Antibody with Reflex to HCV, RNA, Quantitative, Real-Time PCR (01/18/2025 9:28 AM EDT) Hepatitis C Antibody Nonreactive Nonreactive [facility] Comment:Antibodies to HCV no t detected; does not exclude early acuteHCV infection. Blood Venous blood specimen / Unknown 01/18/2025 9:28 AM EDT 01/18/2025 11:03 AM EDT us Ronnell Johnson MD LAB BLOOD ORDERABLES Final Resul t Performing Organization Address [facility] Co de Phone Number [facility] [address] [place] [phone] * Hepatitis B surface antigen, EIA (01/18/2025 9:28 AM EDT) Hepatitis B Surface Ag Negative Negative [facility] Blood Venous blood specimen / Unknown 01/18/2025 9:28 AM EDT 01/18/2025 11:03 AM EDT us Ronnell Johnson MD LAB BLOOD ORDERABLES Final Resul t Performing Organization Address [facility] Co de Phone Number [facility] [address] [place] [phone] * Hepatitis B Core Antibody, Total (01/18/2025 9:28 AM EDT) Hepatitis B Core Antibody Nonreactive Nonreactive [facility] Blood Venous blood specimen / Unknown 01/18/2025 9:28 AM EDT 01/18/2025 11:03 AM EDT us Ronnell Johnson MD LAB BLOOD ORDERABLES Final Resul t Performing Organization Address [facility] Co de Phone Number [facility] [address] [place] [phone] [phone] * RPR (Monitor) with Reflex to??Titer (01/18/2025 9:28 AM EDT) RPR (Monitor) w/Refl Titer NON-REACTI VE NON-REACT PAOLA [facility] Comment:THIS TEST WAS PERFOR MED AT:[facility] [place] [place] [id number] JORGENSEN MD Rapid Plasma Reagin Ab Titer TNP [facility] Blood Venous blood specimen / Unknown 01/18/2025 9:28 AM EDT 01/18/2025 11:03 AM EDT us Ronnell Johnson MD LAB BLOOD ORDERABLES Final Resul t Performing Organization Address [facility] Co de Phone Number [facility] [address] [place] [phone] * HIV-1/2 Antigen and Antibodies, Fourth Generation, with Reflexes (01/18/2025 9:28 AM EDT) HIV AB/AG Nonreactive Nonreactive [facility] Comment:HIV-1 p24 Ag and/or HIV-1/HIV-2 Ab not detected.A test result that is nonreactive does not exclude thepossibility of exposure to or infection with HIV-1 and/orHIV-2. Nonreactive results in this assay for individualswith prior exposure to HIV-1 and/or HIV-2 may be due toantigen and antibody levels that are below the limit ofdetection of this assay.The [employer] HIV Ag/Ab Combo assay result andsupplemental assay results should be interpreted inconjunction with the patient's clinical presentation,history and other laboratory results. If the results areinconsistent with clinical evidence, additional testing issuggested to confirm the result. Blood Venous blood specimen / Unknown 01/18/2025 9:28 AM EDT 01/18/2025 11:03 AM EDT us Ronnell Johnson MD LAB BLOOD ORDERABLES Final Resul t Performing Organization Address [facility] de Phone Number [facility] [address] [place] [phone] * Hepatitis B Surface Antibody, Qualitative (01/18/2025 9:28 AM EDT) ~Hepatitis B Surface Antibody NONREACTIVE Nonreactive [facility] Comment:Nonreactive: < 8.00 mIU/mL Blood Venous blood specimen / Unknown 01/18/2025 9:28 AM EDT 01/18/2025 11:03 AM EDT us Ronnell Johnson MD LAB BLOOD ORDERABLES Final Resul t Performing Organization Address [facility] de Phone Number [facility] [address] [place] [phone] * Magnesium (01/18/2025 9:28 AM EDT) Magnesium 2.1 1.6 - 2.6 mg/dL [facility] Blood Venous blood specimen / Unknown 01/18/2025 9:28 AM EDT 01/18/2025 11:03 AM EDT us Ronnell Johnson MD LAB BLOOD ORDERABLES Final Resul t Performing Organization Address [facility] de Phone Number [facility] [address] [place] [phone] * Hemoglobin A1c (01/18/2025 9:28 AM EDT) Hemoglobin A1c 5.9 <6.0 % [facility] Comment:Hemoglobin A1C Refer ence Range Adults: 4.8 - 6.0 % Non diabetic: < 6.0 % Goal: < 7.0 %Additional Action Suggested: > 8.0 %Note: Hemoglobin A1c results are invalid for patients with abnormal amounts of HbF. Blood transfusions may impact the HbA1c concentration in the patient sample. Estimated Average Glucose 123 mg/dL [facility] Comment:eAG = Estimated ave rage glucose which is %A1C expressed asaverage glucose, using the formula of the [id number]-[id number] Glucose study (ADAG), Diabetes Care, Vol.31,#8,Feb. 2007 Blood Venous blood specimen / Unknown 01/18/2025 9:28 AM EDT 01/18/2025 11:03 AM EDT us Ronnell Johnson MD LAB BLOOD ORDERABLES Final Resul t [facility] [address] [place] [phone] * Vitamin B12 (01/18/2025 9:28 AM EDT) Vitamin B12 751 200 - 900 pg/mL [facility] Comment:NORMAL 200-900 PG/ML INDETERMINATE 160-199 PG/ML DEFICIENT < 160 PG/ML Blood Venous blood specimen / Unknown 01/18/2025 9:28 AM EDT 01/18/2025 11:03 AM EDT us Ronnell Johnson MD LAB BLOOD ORDERABLES Final Resul t Performing Organization Address City/[facility]/ZIP Co de Phone Number [facility] [address] [place] [phone] * (ABNORMAL) Lipid Panel, Standard (01/18/2025 9:28 AM EDT) Triglycerides 106 <150 mg/dL [facility] Comment:Desirable Triglyceri de: less than 150 mg/dLBorderline High Triglyceride 150-199 mg/dLHigh Triglyceride: 200-499 mg/dLVery High Triglyceride: greater than or equal to 5OO mg/dL Cholesterol 120 <200 mg/dL [facility] Comment:Desirable Cholestero l: less than 200 mg/dLBorderline High Cholesterol: 200-239 mg/dLHigh Cholesterol: greater than 239 mg/dL LDL Cholesterol Calculated 64 <100 mg/dL [facility] Comment:Desirable LDL: less than 100 mg/dLNear Optimal/Above Optimal LDL: 110- 129 mg/dLBorderline High LDL: 130-159 mg/dLHigh LDL: 160-189 mg/dLVery High LDL: greater than or equal to 190 mg/dL HDL Cholesterol 35(L) >40 mg/dL [facility] Comment:Desirable HDL: great er than 40 mg/dL Note: This HDL assay may give artificially low results in patients with liver disease. Blood Venous blood specimen / Unknown 01/18/2025 9:28 AM EDT 01/18/2025 11:03 AM EDT us Ronnell Johnson MD LAB BLOOD ORDERABLES Final Resul t [facility] [address] [place] [phone] * (ABNORMAL) Comprehensive Metabolic Panel (01/18/2025 9:28 AM EDT) Sodium 141 135 - 145 mmol/L [facility] Potassium 4.0 3.3 - 5.1 mmol/L [facility] Chloride 108 96 - 108 mmol/L [facility] Carbon Dioxide 27 22 - 29 mmol/L [facility] Anion Gap 10(L) 12 - 20 [facility] Urea Nitrogen (BUN) 16 9 - 16 mg/dL [facility] Creatinine, Serum 0.79 0.5 - 1.4 mg/dL [facility] Estimated Glomerular Filt Rate >60 [facility] Comment:Chronic Kidney Disea se: Estimated GFR < 60 mL/min/1.57s1Hysucw Kidney Disease: Estimated GFR < 15 mL/min/1.73m2 Glucose 91 60 - 115 mg/dL [facility] Calcium 9.1 8.4 - 10.2 mg/dL [facility] Bilirubin, Total 0.6 0.0 - 1.0 mg/dL [facility] Aspartate Amino Transferase 24 5 - 31 U/L [facility] Alanine Aminotransferase 20 0 - 31 U/L [facility] Total Protein 7.0 6.5 - 8.0 g/dL [facility] Albumin Level 4.5 3.5 - 5.0 g/dL [facility] Alkaline Phosphatase 102 39 - 117 U/L [facility] Blood Venous blood specimen / Unknown 01/18/2025 9:28 AM EDT 01/18/2025 11:03 AM EDT Ronnell Johnson MD LAB BLOOD ORDERABLES Final Resul t Performing Organization Address City/State/[facility] Co de Phone Number [facility] [address] [place] [phone] from Last 3 Months Insurance [facility] [employer] STAND ADULT Care Teams Cable Installer Repairer Helper Relationship Specialty Start Date End Date Sandy Whitley MD [address] [place] [phone] PCP - General Internal Medicine 02/13/25
== END 2025-03-31 09:47 | disposition home or self-care (01) ==
LOC: HO.US 09:46
PROVIDERS: PCP Internal Medicine; Visit Provider Surgery Vascular Surgery
DX: I83.11 Varicose veins of right lower extremity with inflammation (principal)
CPT/HCPCS: 93970

== ENCOUNTER → 2025-03-31 09:47 | Outpatient (BNV) | payer MEDICAID, SELFPAY | PROVIDERS: PCP Internal Medicine; Visit Provider Radiology Diagnostic Radiology | DX: I83.11 Varicose veins of right lower extremity with inflammation (principal) | CPT/HCPCS: 93970 ==

== ENCOUNTER 2025-04-06 11:13 | Outpatient (AMB) | payer MEDICAID, SELFPAY ==
--- NOTE | 2025-04-06 11:16 | MHC.OFFVIS ---
Intake Visit Reasons: follow up [facility] 03/31/25 Intake Note: Patient presents for [facility] follow up performed on 03/31/25. Patients right foot and ankle have been swelling. She states it is slowly but surely getting better. Accompanied by: Self / Same As Patient Allergies Penicillins Allergy (Severe, Verified 04/06/25 11:18) Unknown HPI HPI follow up [facility] 03/31/25: Details: The patient is a 59-year-old female presenting for follow-up regarding venous insufficiency. She reports that her legs swell, which is her primary concern. The swelling is described as tight and intermittent, primarily affecting the right leg. The patient notes that the swelling comes and goes, and is currently mild. An ultrasound was performed, which returned normal results, indicating no procedural intervention is necessary at this time. The patient has been advised to wear compression stockings to help manage the swelling and to elevate her legs while resting. Review of Systems Const All systems reviewed & are unremarkable except as noted in HPI and below Reports no additional complaints ENT Reports Normal hearing present Card Denies chest pain, Denies chest pain at rest, Denies chest pain with activity and Denies pedal edema Resp Denies cough GI Denies abdominal pain Musc Denies abnormal gait, Denies muscle cramps and Denies radiating pain into limb Skin/Breast Denies skin ulcer and Denies wounds Neuro Reports Normal hearing present and Denies abnormal gait Psych Reports no additional complaints Physical Exam Const General: cooperative, healthy appearing and comfortable Orientation/consciousness: oriented to person, oriented to place and oriented to time HEENT Head: Yes normal to inspection Neck Neck: Yes normal visual inspection Carotids: no bruits Chest Chest palpation & inspection: normal inspection of the chest Resp Effort & Inspection: normal respiratory effort and able to speak in complete sentences Auscultation: clear to auscultation bilaterally, no crackles, no rales, no rhonchi and no wheezes Cardio Rate: regular rate Rhythm: regular rhythm Heart sounds: S1 normal heart sound present and S2 normal heart sound present Bruits: no carotid bruits Peripheral pulses: Peripheral pulses 2+ throughout GI Inspection: Yes normal to inspection Skin Wounds: no wounds Hair: normal Neuro General: oriented to person, oriented to place and oriented to time Cranial nerves: Yes CN's II-XII intact bilaterally and Yes Normal hearing present Cognition (Neuro): normal cognition Motor exam (neuro): 5/5 motor strength present throughout Extrem Other: venous exam: No significant superficial varicosities or spider telangiectasias, minimal edema General: No clubbing, No cyanosis and No edema Psych Appearance: grossly normal Mental Status: mental status grossly normal Speech and movement: Normal speech and movement present Results Reviewed Results Reviewed: Brief summary of venous insufficiency testing is as follows: right great saphenous vein: negative right small saphenous vein: negative right accessory vein: none present left great saphenous vein: negative left small saphenous vein: negative left accessory vein: none present Please note there is no evidence of any venous aneurysms or significant tortuosity Assessment & Plan Assessment & Plan (1) Varicose veins of right lower extremity with inflammation: Code(s): I83.11 - Varicose veins of right lower extremity with inflammation Category: Medical Plan: I discussed with the patient that her ultrasound results were normal, indicating no need for procedural intervention at this time. I recommended wearing compression stockings and elevating her legs to manage the swelling. Plan Patient was informed and verbally consented to the use of an ambient scribe for clinic note documentation during this visit. Patient Instructions: - Wear compression stockings daily to help manage leg swelling. - Elevate legs while resting to reduce swelling. Coding Level of Care Code Est Pt Level 4 (07311) Diagnoses Varicose veins of right lower extremity with inflammation I83.11
--- OUTSIDE RECORDS SUMMARY | 2025-04-06 13:29 | XMS_ITS | Encounter Summary ---
Author Organization [facility] Address [address] [place] [address] Care Team Providers Care Extern Name Role Phone Cathleen Gill SCREEN STRETCHER Primary Care Provider [phone] Encounter Details Date Type Department Care Team ([facility] st Contact Info) Description 06/15/[address] [phone] Slim Lopez [phone] [place] [address] Social History Tobacco Use Types Packs/Day Years [...] on filedocumented in this encounter Care Teams Extern Relationship Specialty Start Date End Date Cathleen Gill NP [address] [place] [phone] PCP - General Internal Medicine 10/21/17 04/26/18 documented as of this encounter
--- OUTSIDE RECORDS SUMMARY | 2025-04-06 13:29 | XMS_ITS | Clinical Summary ---
Author Organization [facility] Address [address] [place] [address] Care Team Providers Care Therapeutic Strategy Lead Name Role Phone Joseph De León MD Primary Care Provider [phone] Family History Medical History Relation Name Comments [...] age to complete this topic Care Teams Therapeutic Strategy Lead Relationship Specialty Start Date End Date Joseph De León MD [address] [place] [address] [id number] [place] [address] PCP - General Internal Medicine 06/10/20
--- OUTSIDE RECORDS SUMMARY | 2025-04-06 13:29 | XMS_ITS | Clinical Summary ---
Author Organization [facility] Address [address] [place] [address] Care Team Providers Care Videotape Sales Representative Name Role Phone Unavailable Primary Care Provider [...] ordered by cardiology Chronic diastolic heart failure ([facility]) 05/03/2018 Overview (05/03/2018): Seen by cardiology-last follow-up [...] History of dyspnea 12/15/2017 Overview (12/15/2017): 12/09/2017 [facility]- DR Cr Routine 2 views No acute pulmonary disease. Depression 10/21/2017 Hyperlipidemia 10/21/2017 Positive cardiac stress test 07/22/2017 Overview (10/21/2017): Pt follows with [facility] at [address] in [place]. Scheduled with [facility] Chronic daily headache 07/06/2017 Essential hypertension 06/08/2017 Anemia 05/07/2017 Overview (05/07/2017): Reports was treated with iron supplement- LMP 08/2016 Reports heavy periods in the past Arthropathy Overview (05/07/2017): many tests done in [place]- was told everything is normal Immunizations Immunization [...] Treatment Not on file Insurance [employer] [facility] [employer] DENTAL [facility]
--- OUTSIDE RECORDS SUMMARY | 2025-04-06 13:29 | XMS_ITS | Clinical Summary ---
Author Organization [employer] Address [address] [place] [address] Care Team Providers Care Food And Beverage Lead Name Role Phone Sandy Whitley MD Primary [...] 10/20/2024 Overview (10/20/2024): many tests done in [place]- was told everything is normal Flat foot [...] test 07/22/2017 Overview (10/20/2024): Pt follows with [facility] at [address] [facility] [address] in [place]. Scheduled with [facility] Chronic daily headache 07/06/2017 [...] (10/20/2024): Reports was treated with iron supplement- [facility] 08/2016 Reports heavy periods in the past Encounters * This document contains information received from the source organization and may not represent a complete record from that organization. Date Type Department Care Team Description 03/16/2025 Telephone [facility] [address] [place] [phone] Sandy Whitley MD May03/13/2025 Refill [facility] [address] [place] [phone] Sandy Whitley MD 03/01/2025 Travel 02/27/2025 9:30 AM EDT Clinical Support [facility] [address] [place] [address] Ria Almanza, TUCKER Essential hypertension 02/27/2025 Travel 02/26/2025 Travel 02/25/2025 Refill [facility] [address] [place] [phone] Sandy Whitley MD 02/22/2025 Results Follow-Up [facility] [address] [place] [phone] Sandy Whitley MD XR Lumbar Spine Complete 4+ Views 02/13/2025 10:45 AM EDT Office Visit [facility] [address] [place] [phone] Sandy Whitley MD Pure hypercholesterolemia (Primary Dx); Moderate episode of recurrent major depressive disorder (CMS/HCC); Mild intermittent asthma without complication; Chronic bilateral low back pain without sciatica; Primary osteoarthritis of left knee; Essential hypertension 02/13/2025 Travel 02/09/2025 Telephone [facility] [address] [place] [phone] Sandy Whitley MD chart prep 02/06/2025 Travel 02/03/2025 Patient Outreach [address] [address] Sandy Whitley MD Care Coordination (CH[facility] outreach for SDOH housing search-referral completed ) 02/03/2025 Patient Outreach [address] [address] Sandy Whitley MD Pre-visit Planning (SDOH screening negative and tobacco screening negative) 01/26/2025 Refill [facility] [address] [place] [phone] Sandy Whitley MD 01/18/2025 Telephone [facility] [address] [place] [phone] Ronnell Johnson MD 01/17/2025 8:40 AM EDT Office Visit [facility] [address] [place] [phone] Ronnell Johnson MD Swelling of right foot [...] with others, in a hotel, in a care home, living outside on the street, on a [...] Description 05/26/2025 10:30 AM EST Office Visit [facility] [address] [place] [address] Sandy Whitley MD [address] [place], [place] [phone] 06/28/2025 2:15 PM EST Office Visit [facility] [address] [place] [address] Sheng Mcelroy Health Maintenance Due Date Last [...] Procedure Name Priority Date/Time Associated Diagnosis Comments VASC US LOWER EXTREMITY VENOUS DUPLEX BILATERAL Routine 03/31/2025 10:00 AM EDT XR KNEE 4+ VIEWS LEFT Routine 02/13/2025 [...] Recently Relevant to Health Maintenance Results * VASC US Lower Extremity Venous Duplex Bilateral (03/31/2025 10:00 AM EDT) 03/31/2025 10:0 0 AM EDT [facility] IM[facility] - 03/31/2025 11:01 AM EDT [address] [address] Ultrasound Report Signed Patient: Connie Hammonds MR#: [id number] : 1965 Acct:[id number] Age/Sex: 59 / F ADM Date: 03/31/25 Loc: HO.US Attending Dr: Karl Garcia MD Ordering Physician: Karl Garcia MD Date of Service: 03/31/25 Procedure(s): US venous duplex LE BI Accession Number(s): [id number] cc: Sandy Whitley MD; Karl Garcia MD Reason for Exam: I83.11 - Varicose veins of right lower extremity with inflammation EXAMINATION: US LOWER EXTREMITY VENOUS (REFLUX EXAM), BILATERAL CLINICAL INFORMATION: Venous incompetence COMPARISON: None. TECHNIQUE: Color flow triplex imaging and compression Doppler was performed to evaluate both the deep and the superficial systems bilaterally. To evaluate the superficial system, the examination was performed in the upright position. Color-flow Doppler ultrasound and compression ultrasound were utilized. In addition, maneuvers were utilized to demonstrate reflux. FINDINGS: 1. DEEP VENOUS ULTRASOUND OF THE RIGHT LOWER EXTREMITY: Common Femoral Vein: Compressible, normal respiratory variation and augmented flow. Femoral Vein: Compressible, normal color flow and augmentation. Popliteal Vein: Compressible, normal augmentation. Deep Reflux: There is no evidence of reflux in the deep system in either the common femoral vein, superficial femoral or the popliteal vein. 2. SUPERFICIAL ULTRASOUND WITH DOPPLER OF RIGHT LOWER EXTREMITY: GREAT SAPHENOUS VEIN: Saphenofemoral Junction: 0.7 cm; Reflux: 0 ms Proximal Thigh: 0.6 cm; Reflux: 0 ms Mid Thigh: 0.3 cm; Reflux: 0 ms Distal Thigh: 0.2 cm; Reflux: 0 ms At Knee: 2.4 cm; Reflux: 0 ms Below Knee/Proximal Calf: 0.3 cm; Reflux: 0 ms Mid Calf: 0.2 cm; Reflux: 0 ms Ankle/Distal Calf: 0.2 cm; Reflux: 0 ms Lateral accessory GREAT SAPHENOUS VEIN: Saphenofemoral Junction: 0.2 cm; Reflux: 0 ms Mid Thigh: 0.1 cm; Reflux: 0 ms SMALL SAPHENOUS VEIN: Drainage: Thigh extension Saphenopopliteal Junction: 2 cm; Reflux: 0 ms Mid calf: 0.2 cm; Reflux: 0 ms Distal: 0.2 cm; Reflux: > 2400 ms VEIN OF GIACOMINI: Size: 0.2 cm Reflux: 0 ms PERFORATORS: Location: Small saphenous vein, proximal Size: 0.2 cm Reflux: 0 ms VARICOSITIES > 3mm: Location: None Imaged 3. DEEP VENOUS ULTRASOUND OF THE LEFT LOWER EXTREMITY: Common Femoral Vein: Compressible, normal respiratory variation and augmented flow. Femoral Vein: Compressible, normal color flow and augmentation. Popliteal Vein: Compressible, normal augmentation. Deep Reflux: There is no evidence of reflux in the deep system in either the common femoral vein, superficial femoral or the popliteal vein. 4. SUPERFICIAL ULTRASOUND WITH DOPPLER OF LEFT LOWER EXTREMITY: GREAT SAPHENOUS VEIN: Saphenofemoral Junction: 0.7 cm; Reflux: 0 ms Proximal Thigh: 0.5 cm; Reflux: 0 ms Mid Thigh: 0.3 cm; Reflux: 0 ms Distal Thigh: 0.1 cm; Reflux: 0 ms At Knee: 0.1 cm; Reflux: 0 ms Below Knee/Proximl calf: 0.1 cm; Reflux: 0 ms Mid Calf: 0.2 cm; Reflux: 0 ms Distal Calf/Ankle: 0.2 cm; Reflux: 0 ms Lateral accessory GREAT SAPHENOUS VEIN: Saphenofemoral Junction: 0.3 cm; Reflux: 0 ms Mid Thigh: 0.2 cm; Reflux: 0 ms SMALL SAPHENOUS VEIN: Drainage: Thigh extension Saphenopopliteal Junction: 0.2 cm; Reflux: 0 ms Mid calf: 0.1 cm; Reflux: 0 ms Distal calf: 0.1 cm; Reflux: 0 ms VEIN OF GIACOMINI: Size: NA Reflux: NA PERFORATORS: Location: Greater saphenous vein, proximal calf Size: 0.1 cm Reflux: 0 ms VARICOSITIES > 3mm: Location: None Imaged US/US venous duplex LE BI IMPRESSION: Right: Venous incompetence involving small saphenous vein in the distal calf Left: No venous reflux is demonstrated. Electronically signed by: Vince Villavicencio MD 03/31/2025 10:58 AM EDT RP Dictated By: Vince Villavicencio MD Signed By: <Electronically signed by Vince Villavicencio MD in OV> 03/31/25 1058 DD/ 1000 TD/TT: 03/31/25 1037 Youth Services Specialist: Procedure Note Donotuseinterpreter, Image - 03/31/2025 [place] [address] Ultrasound Report Signed Patient: Valentina HammondsR#: [id number] : 1965Acct:[id number] Age/Sex: 59 / FADM Date: 03/31/25 Loc: .US Attending Dr: Karl Garcia MD Ordering Physician: Karl Garcia MD Date of Service: 03/31/25 Procedure(s): US venous duplex LE BI Accession Number(s): [id number] cc: Sandy Whitley MD; Karl Garcia MD Reason for Exam: I83.11 - Varicose veins of right lower extremity withinflammation EXAMINATION: US LOWER EXTREMITY VENOUS (REFLUX EXAM), BILATERAL CLINICAL INFORMATION: Venous incompetence COMPARISON: None. TECHNIQUE: Color flow triplex imaging and compression Doppler was performed to evaluate both the deep and the superficial systems bilaterally. To evaluate the superficial system, the examination was performed in the upright position. Color-flow Doppler ultrasound and compression ultrasound were utilized. In addition, maneuvers were utilized to demonstrate reflux. FINDINGS: 1. DEEP VENOUS ULTRASOUND OF THE RIGHT LOWER EXTREMITY: Common Femoral Vein: Compressible, normal respiratory variation and augmented flow. Femoral Vein: Compressible, normal color flow and augmentation. Popliteal Vein: Compressible, normal augmentation. Deep Reflux: There is no evidence of reflux in the deep system in either the common femoral vein, superficial femoral or the popliteal vein. 2. SUPERFICIAL ULTRASOUND WITH DOPPLER OF RIGHT LOWER EXTREMITY: GREAT SAPHENOUS VEIN: Saphenofemoral Junction: 0.7 cm; Reflux: 0 ms Proximal Thigh: 0.6 cm; Reflux: 0 ms Mid Thigh: 0.3 cm; Reflux: 0 ms Distal Thigh: 0.2 cm; Reflux: 0 ms At Knee: 2.4 cm; Reflux: 0 ms Below Knee/Proximal Calf: 0.3 cm; Reflux: 0 ms Mid Calf: 0.2 cm; Reflux: 0 ms Ankle/Distal Calf: 0.2 cm; Reflux: 0 ms Lateral accessory GREAT SAPHENOUS VEIN: Saphenofemoral Junction: 0.2 cm; Reflux: 0 ms Mid Thigh: 0.1 cm; Reflux: 0 ms SMALL SAPHENOUS VEIN: Drainage: Thigh extension Saphenopopliteal Junction: 2 cm; Reflux: 0 ms Mid calf: 0.2 cm; Reflux: 0 ms Distal: 0.2 cm; Reflux: > 2400 ms VEIN OF GIACOMINI: Size: 0.2 cm Reflux: 0 ms PERFORATORS: Location: Small saphenous vein, proximal Size: 0.2 cm Reflux: 0 ms VARICOSITIES > 3mm: Location: None Imaged 3. DEEP VENOUS ULTRASOUND OF THE LEFT LOWER EXTREMITY: Common Femoral Vein: Compressible, normal respiratory variation and augmented flow. Femoral Vein: Compressible, normal color flow and augmentation. Popliteal Vein: Compressible, normal augmentation. Deep Reflux: There is no evidence of reflux in the deep system in either the common femoral vein, superficial femoral or the popliteal vein. 4. SUPERFICIAL ULTRASOUND WITH DOPPLER OF LEFT LOWER EXTREMITY: GREAT SAPHENOUS VEIN: Saphenofemoral Junction: 0.7 cm; Reflux: 0 ms Proximal Thigh: 0.5 cm; Reflux: 0 ms Mid Thigh: 0.3 cm; Reflux: 0 ms Distal Thigh: 0.1 cm; Reflux: 0 ms At Knee: 0.1 cm; Reflux: 0 ms Below Knee/Proximl calf: 0.1 cm; Reflux: 0 ms Mid Calf: 0.2 cm; Reflux: 0 ms Distal Calf/Ankle: 0.2 cm; Reflux: 0 ms Lateral accessory GREAT SAPHENOUS VEIN: Saphenofemoral Junction: 0.3 cm; Reflux: 0 ms Mid Thigh: 0.2 cm; Reflux: 0 ms SMALL SAPHENOUS VEIN: Drainage: Thigh extension Saphenopopliteal Junction: 0.2 cm; Reflux: 0 ms Mid calf: 0.1 cm; Reflux: 0 ms Distal calf: 0.1 cm; Reflux: 0 ms VEIN OF GIACOMINI: Size: NA Reflux: NA PERFORATORS: Location: Greater saphenous vein, proximal calf Size: 0.1 cm Reflux: 0 ms VARICOSITIES > 3mm: Location: None Imaged US/US venous duplex LE BI IMPRESSION: Right: Venous incompetence involving small saphenous vein in the distal calf Left: No venous reflux is demonstrated. Electronically signed by: Vince Villavicencio MD 03/31/2025 10:58 AM EDT RP Dictated By: Vince Villavicencio MD Signed By: <Electronically signed by Vince Villavicencio MD in OV> 03/31/25 1058 DD/ 1000 TD/TT: 03/31/25 1037 Youth Services Specialist: [facility] External Provider CV VASC ULAR PROCEDURES Final Result Performing Organization Address City/State/[facility] Co de Phone Number [facility] [address] [place] [phone] * XR Knee 4+ Views Left (02/13/2025 12:00 PM EDT) Anatomical Region Laterality Modality Lower Extremities, Knee Left [facility] 02/13/2025 12:0 0 PM EDT Narrative 02/13/2025 1:33 PM EDT [address] [address] XRay Report Signed Patient: Connie Hammonds MR#: [id number] : 1965 Acct:[id number] Age/Sex: 59 / F ADM Date: 02/13/25 Loc: HO.HHCX Attending Dr: Sandy Whitley MD Ordering Physician: Sandy Whitley MD Date of Service: 02/13/25 Procedure(s): XR knee LT 4V Accession Number(s): [id number] cc: Sandy Whitley MD EXAMINATION: XR KNEE [...] Kip Love MD 02/13/2025 01:30 PM EDT RP Dictated By: Kip Love MD Signed By: <Electronically signed by Kip Love MD in OV> 02/13/25 1330 DD/ 1200 TD/TT: 02/13/25 1200 Youth Services Specialist: Procedure Note Donotuseinterpreter, Image - 02/13/2025 [place] [address] XRay Report Signed Patient: Shayan Hammonds#: MM [id number] : 1965Acct:[id number] Age/Sex: 59 / FADM Date: 02/13/25 Loc: HO.HHCX Attending Dr: Sandy Whitley MD Ordering Physician: Sandy Whitley MD Date of Service: 02/13/25 Procedure(s): XR knee LT 4V Accession Number(s): [id number] cc: Sandy Whitley MD EXAMINATION: XR KNEE [...] Kip Love MD 02/13/2025 01:30 PM EDT RP Dictated By: Kip Love MD Signed By: <Electronically signed by Kip Love MD in OV> 02/13/25 1330 DD/ 1200 TD/TT: 02/13/25 1200 Youth Services Specialist: Sandy Whitley MD IMG XR PROCEDURES Final Result * XR Lumbar Spine Complete 4+ Views (02/13/2025 11:53 AM EDT) Anatomical Region Laterality Modality Spine, L-spine Radiographic Itzel ging 02/13/2025 11:5 3 AM EDT Narrative 02/13/2025 1:37 PM EDT [address] [address] XRay Report Signed Patient: Connie Hammonds MR#: [id number] : 1965 Acct:[id number] Age/Sex: 59 / F ADM Date: 02/13/25 Loc: HO.HHCX Attending Dr: Sandy Whitley MD Ordering Physician: Sandy Whitley MD Date of Service: 02/13/25 Procedure(s): XR lumbar spine 4V min Accession Number(s): [id number] cc: Sandy Whitley MD EXAMINATION: XR LUMBAR [...] Kip Love MD 02/13/2025 01:34 PM EDT Dictated By: Kip Love MD Signed By: <Electronically signed by Kip Love MD in OV> 02/13/25 1334 DD/ 1153 TD/TT: 02/13/25 1200 Youth Services Specialist: Procedure Note Donotuseinterpreter, Image - 02/13/2025 [facility] [address] [place] [address] XRay Report Signed Patient: Shayan Hammonds#: [id number] : 1965Acct:[id number] Age/Sex: 59 / FADM Date: 02/13/25 Loc: [facility] Attending Dr: Sandy Whitley MD Ordering Physician: Sandy Whitley MD Date of Service: 02/13/25 Procedure(s): XR lumbar spine 4V min Accession Number(s): [id number] cc: Sandy Whitley MD EXAMINATION: XR LUMBAR [...] Kip Love MD 02/13/2025 01:34 PM EDT Dictated By: Kip Love MD Signed By: <Electronically signed by Kip Love MD in OV> 02/13/25 1334 DD/ 1153 TD/TT: 02/13/25 1200 Youth Services Specialist: us Sandy Whitley MD IMG XR PROCEDURES Final Result * Slide Review (01/18/2025 9:28 AM EDT) Slide Review VERIFIED [facility] 01/18/2025 9:28 AM EDT 01/18/2025 11:03 AM EDT us Ronnell Johnson MD LAB BLOOD ORDERABLES Final Resul t Performing Organization Address City/[facility]/ZIP Co de Phone Number [facility] [address] [place] [phone] * TSH with Reflex to Free T4 (01/18/2025 9:28 AM EDT) TSH reflex Free T4 1.29 0.32 - 4.0 uIU/mL [facility] Blood Venous blood specimen / Unknown 01/18/2025 9:28 AM EDT 01/18/2025 11:03 AM EDT us Ronnell Johnson MD LAB BLOOD ORDERABLES Final Resul t Performing Organization Address [facility] de Phone Number [facility] [address] [place] [phone] * CBC auto differential (01/18/2025 9:28 AM EDT) White Blood Count 6.2 4.8 - 10.8 X10*3/uL [facility] Red Blood Count 4.95 4.20 - 5.50 X10*6/uL [facility] Hemoglobin 13.9 12.0 - 16.0 g/dl [facility] Hematocrit 40.8 37.0 - 47.0 % [facility] Mean Corpuscular Volume 82.4 80.0 - 98.0 fL [facility] Mean Corpuscular Hemoglobin 28.1 27.0 - 33.0 pg [facility] Mean Corpuscular HGB Conc 34.1 31.0 - 35.0 g/dl [facility] Red Cell Distribution Width 13.9 11.0 - 16.0 % [facility] Platelet Count TNP 160 - 400 X10*3/uL [facility] Comment:Platelet clumps note d. Platelet count will not be accurate.Recollecting the platelet count in a blue top tube mayeliminate platelet clumps. Order platelet count blue toptube. A lavender top tube must be drawn if CBC is required. Mean Platelet Volume TNP 9.4 - 12.3 fL [facility] Neutrophils Percent Auto 61.0 45 - 73 % [facility] Imm Gran Pct Auto 0.3 0.0 - 0.4 % [facility] Lymphocytes Percent Auto 28.0 20 - 40 % [facility] Monocytes Percent Auto 6.5 2 - 11 % [facility] Eosinophils Percent Auto 3.2 0 - 4 % [facility] Basophils Percent Auto 1.0 0 - 2 % [facility] NRBC Pct Auto 0.0 0.0 - 0.2 /100WBC [facility] Neutrophils Absolute Auto 3.8 2.0 - 8.3 x10*3/uL [facility] Imm Gran Abs Auto 0.02 0.00 - 0.03 X10*3/uL [facility] Lymphocytes Absolute Auto 1.7 1.2 - 4.9 X10*3/uL [facility] Monocytes Absolute Auto 0.4 0.1 - 1.2 X10*3/uL [facility] Eosinophils Absolute Auto 0.2 0.0 - 0.4 X10*3/uL [facility] Basophils Absolute Auto 0.1 0.0 - 0.2 X10*3/uL [facility] NRBC Abs Auto 0.000 0.0 - 0.012 X10*3/uL [facility] Blood Venous blood specimen / Unknown 01/18/2025 9:28 AM EDT 01/18/2025 11:03 AM EDT us Ronnell Johnson MD LAB BLOOD ORDERABLES Edited Resu lt - Final [facility] [address] [place] [phone] [phone] * Hepatitis C Antibody with Reflex to HCV, RNA, Quantitative, Real-Time PCR (01/18/2025 9:28 AM EDT) Hepatitis C Antibody Nonreactive Nonreactive [facility] Comment:Antibodies to HCV no t detected; does not exclude early acuteHCV infection. Blood Venous blood specimen / Unknown 01/18/2025 9:28 AM EDT 01/18/2025 11:03 AM EDT us Ronnell Johnson MD LAB BLOOD ORDERABLES Final Resul t Performing Organization Address [facility] de Phone Number [facility] [address] [place] [phone] * Hepatitis B surface antigen, EIA (01/18/2025 9:28 AM EDT) Hepatitis B Surface Ag Negative Negative [facility] Blood Venous blood specimen / Unknown 01/18/2025 9:28 AM EDT 01/18/2025 11:03 AM EDT us Ronnell Johnson MD LAB BLOOD ORDERABLES Final Resul t Performing Organization Address [facility] Co de Phone Number [facility] [address] [place] [phone] * Hepatitis B Core Antibody, Total (01/18/2025 9:28 AM EDT) Hepatitis B Core Antibody Nonreactive Nonreactive [facility] Blood Venous blood specimen / Unknown 01/18/2025 9:28 AM EDT 01/18/2025 11:03 AM EDT us Ronnell Johnson MD LAB BLOOD ORDERABLES Final Resul t Performing Organization Address [facility] de Phone Number [facility] [address] [place] [phone] * RPR (Monitor) with Reflex to??Titer (01/18/2025 9:28 AM EDT) RPR (Monitor) w/Refl Titer NON-REACTI VE NON-REACT PAOLA [facility] Comment:THIS TEST WAS PERFOR MED AT:[facility] [address] [id number] JORGENSEN MD Rapid Plasma Reagin Ab Titer TNP [facility] Blood Venous blood specimen / Unknown 01/18/2025 9:28 AM EDT 01/18/2025 11:03 AM EDT us Ronnell Johnson MD LAB BLOOD ORDERABLES Final Resul t Performing Organization Address City/[facility]/ZIP Co de Phone Number [facility] [address] [place] [phone] * HIV-1/2 Antigen and Antibodies, Fourth Generation, with Reflexes (01/18/2025 9:28 AM EDT) Pathologist [facility] HIV AB/AG Nonreactive Nonreactive [facility] Comment:HIV-1 p24 Ag and/or HIV-1/HIV-2 Ab not detected.A test result that is nonreactive does not exclude thepossibility of exposure to or infection with HIV-1 and/orHIV-2. Nonreactive results in this assay for individualswith prior exposure to HIV-1 and/or HIV-2 may be due toantigen and antibody levels that are below the limit ofdetection of this assay.The [facility] HIV Ag/Ab Combo assay result andsupplemental assay results should be interpreted inconjunction with the patient's clinical presentation,history and other laboratory results. If the results areinconsistent with clinical evidence, additional testing issuggested to confirm the result. Blood Venous blood specimen / Unknown 01/18/2025 9:28 AM EDT 01/18/2025 11:03 AM EDT us Ronnell Johnson MD LAB BLOOD ORDERABLES Final Resul t [facility] [address] [place] [phone] * Hepatitis B Surface Antibody, Qualitative (01/18/2025 9:28 AM EDT) Pathologist [facility] ~Hepatitis B Surface Antibody NONREACTIVE Nonreactive [facility] Comment:Nonreactive: < 8.00 mIU/mL Blood Venous blood specimen / Unknown 01/18/2025 9:28 AM EDT 01/18/2025 11:03 AM EDT us Ronnell Johnson MD LAB BLOOD ORDERABLES Final Resul t Performing Organization Address [facility] de Phone Number [facility] [address] [place] [phone] * Magnesium (01/18/2025 9:28 AM EDT) Magnesium 2.1 1.6 - 2.6 mg/dL [facility] Blood Venous blood specimen / Unknown 01/18/2025 9:28 AM EDT 01/18/2025 11:03 AM EDT us Ronnell Johnson MD LAB BLOOD ORDERABLES Final Resul t Performing Organization Address [facility] de Phone Number [facility] [address] [place] [phone] * Hemoglobin A1c (01/18/2025 9:28 AM EDT) Hemoglobin A1c 5.9 <6.0 % [facility] Comment:Hemoglobin A1C Refer ence Range Adults: 4.8 - 6.0 % Non diabetic: < 6.0 % Goal: < 7.0 %Additional Action Suggested: > 8.0 %Note: Hemoglobin A1c results are invalid for patients with abnormal amounts of HbF. Blood transfusions may impact the HbA1c concentration in the patient sample. Estimated Average Glucose 123 mg/dL [facility] Comment:eAG = Estimated ave rage glucose which is %A1C expressed asaverage glucose, using the formula of the F3L-CmggogtQtqtkhr Glucose study (ADAG), Diabetes Care, Vol.31,#8,Feb. 2007 Blood Venous blood specimen / Unknown 01/18/2025 9:28 AM EDT 01/18/2025 11:03 AM EDT us Ronnell Johnson MD LAB BLOOD ORDERABLES Final Resul t Performing Organization Address City/[facility]/ZIP Co de Phone Number [facility] [address] [place] [phone] * Vitamin B12 (01/18/2025 9:28 AM EDT) Vitamin B12 751 200 - 900 pg/mL [facility] Comment:NORMAL 200-900 PG/ML INDETERMINATE 160-199 PG/ML DEFICIENT < 160 PG/ML Blood Venous blood specimen / Unknown 01/18/2025 9:28 AM EDT 01/18/2025 11:03 AM EDT us Ronnell Johnson MD LAB BLOOD ORDERABLES Final Resul t Performing Organization Address [facility] Co de Phone Number [facility] [address] [place] [phone] * (ABNORMAL) Lipid Panel, Standard (01/18/2025 9:28 AM EDT) Triglycerides 106 <150 mg/dL [facility] Comment:Desirable Triglyceri de: less than 150 mg/dLBorderline High Triglyceride 150-199 mg/dLHigh Triglyceride: 200-499 mg/dLVery High Triglyceride: greater than or equal to 5OO mg/dL Cholesterol 120 <200 mg/dL [facility] Comment:Desirable Cholestero l: less than 200 mg/dLBorderline High Cholesterol: 200-239 mg/dLHigh Cholesterol: greater than 239 mg/dL LDL Cholesterol Calculated 64 <100 mg/dL [facility] Comment:Desirable LDL: less than 100 mg/dLNear Optimal/Above Optimal LDL: 110- 129 mg/dLBorderline High LDL: 130-159 mg/dLHigh LDL: 160-189 mg/dLVery High LDL: greater than or equal to 190 mg/dL HDL Cholesterol 35(L) >40 mg/dL [facility] Comment:Desirable HDL: great er than 40 mg/dL Note: This HDL assay may give artificially low results in patients with liver disease. Blood Venous blood specimen / Unknown 01/18/2025 9:28 AM EDT 01/18/2025 11:03 AM EDT us Ronnell Johnson MD LAB BLOOD ORDERABLES Final Resul t [facility] [address] [place] [address] [phone] * (ABNORMAL) Comprehensive Metabolic Panel (01/18/2025 9:28 AM EDT) Sodium 141 135 - 145 mmol/L [facility] Potassium 4.0 3.3 - 5.1 mmol/L [facility] Chloride 108 96 - 108 mmol/L [facility] Carbon Dioxide 27 22 - 29 mmol/L [facility] Anion Gap 10(L) 12 - 20 [facility] Urea Nitrogen (BUN) 16 9 - 16 mg/dL [facility] Creatinine, Serum 0.79 0.5 - 1.4 mg/dL [facility] Estimated Glomerular Filt Rate >60 [facility] Comment:Chronic Kidney Disea se: Estimated GFR < 60 mL/min/[id number] Kidney Disease: Estimated GFR < 15 mL/min/1.73m2 Glucose 91 60 - 115 mg/dL [facility] Calcium 9.1 8.4 - 10.2 mg/dL [facility] Bilirubin, Total 0.6 0.0 - 1.0 mg/dL [facility] Aspartate Amino Transferase 24 5 - 31 U/L [facility] Alanine Aminotransferase 20 0 - 31 U/L [facility] Total Protein 7.0 6.5 - 8.0 g/dL [facility] Albumin Level 4.5 3.5 - 5.0 g/dL [facility] Alkaline Phosphatase 102 39 - 117 U/L [facility] Blood Venous blood specimen / Unknown 01/18/2025 9:28 AM EDT 01/18/2025 11:03 AM EDT us Ronnell Johnson MD LAB BLOOD ORDERABLES Final Resul t [facility] [address] [place] [address] [phone] from Last 3 Months Insurance [facility] C3 DENTAL-[facility] MEDICAID STAND ADULT Care Teams Food And Beverage Lead Relationship Specialty Start Date End Date Sandy Whitley MD [address] [place] [phone] PCP - General Internal Medicine 02/13/25
== END 2025-04-06 11:27 | disposition home or self-care (01) ==
LOC: HO.HVS 11:13
PROVIDERS: PCP Internal Medicine; Visit Provider Surgery Vascular Surgery
DX: I83.11 Varicose veins of right lower extremity with inflammation (principal)
CPT/HCPCS: 99214

== ENCOUNTER → 2025-04-06 11:13 | Outpatient (BNVA) | payer MEDICAID, SELFPAY | PROVIDERS: PCP Internal Medicine; Visit Provider Surgery Vascular Surgery | DX: I83.11 Varicose veins of right lower extremity with inflammation (principal) | CPT/HCPCS: 99212 ==

== ENCOUNTER 2025-04-19 14:56 | Outpatient (REF) | payer MEDICAID, SELFPAY ==
--- NOTE | ~2025-04-19 | US_ITS ---
EXAMINATION: US RETROPERITONEAL LIMITED (RENAL ONLY) CLINICAL INFORMATION: Low back pain.. COMPARISON: None available. TECHNIQUE: Routine grayscale imaging of kidneys is performed. FINDINGS: RIGHT KIDNEY: 10.2 x 4.3 x 4.9 cm (SAG x AP x TRV). The kidney is normal in size, contour, and echogenicity. Renal cortical thickness is normal. There is an echogenic stone lower pole measuring 1.6 x 0.8 0.9 cm. There is mild pelvic fullness. LEFT KIDNEY: 10.2 x 4.9 x 3.8 cm (SAG x AP x TRV). The kidney is normal in size, contour, and echogenicity. Renal cortical thickness is normal. There are no echogenic calculi. There is anechoic cyst upper pole measuring 0.8 x 0.9 x 0.7 cm. No hydronephrosis. US/US renal BI IMPRESSION: Nonobstructive echogenic calculi lower pole right kidney measuring 1.6 cm. Simple upper pole left renal cyst. Electronically signed by: Marcio Kowalski MD 04/20/2025 07:01 AM EDT
--- OUTSIDE RECORDS SUMMARY | 2025-04-19 16:02 | XMS_ITS | Clinical Summary ---
Author Organization [facility] Address [address] [place] [address] Care Team Providers Care Building Construction Teacher Name Role Phone Unavailable Primary Care Provider [...] ordered by cardiology Chronic diastolic heart failure 05/03/2018 Overview (05/03/2018): Seen by cardiology-last follow-up [...] History of dyspnea 12/15/2017 Overview (12/15/2017): 12/09/2017 [facility]- DR Cr Routine 2 views No acute pulmonary disease. Depression 10/21/2017 Hyperlipidemia 10/21/2017 Positive cardiac stress test 07/22/2017 Overview (10/21/2017): Pt follows with [facility] at [address] [facility] [address] in [place]. Scheduled with PVC Chronic daily headache 07/06/2017 Essential hypertension 06/08/2017 Anemia 05/07/2017 Overview (05/07/2017): Reports was treated with iron supplement- LMP 08/2016 Reports heavy periods in the past Arthropathy Overview (05/07/2017): many tests done in [place]- was told everything is normal Immunizations Immunization [...] Treatment Not on file Insurance [facility] DENTAL [facility] D[facility]
--- OUTSIDE RECORDS SUMMARY | 2025-04-19 16:02 | XMS_ITS | Clinical Summary ---
Author Organization [facility] Address [address] [place] [phone] Phone Care Team Providers Care Mat Inspector Name Role Phone Pcp, Unknown Primary Care [...] topic Medical Devices Not on file Insurance [facility] Care Teams Mat Inspector Relationship Specialty Start Date End Date Pcp, Unknown PCP - General 02/14/22 Additional Source Comments The information contained in this document represents components of the legal health record. It is not the complete legal health record.[facility]
--- OUTSIDE RECORDS SUMMARY | 2025-04-19 16:02 | XMS_ITS | Encounter Summary ---
Author Organization [facility] Address [address] [place] [address] Care Team Providers Care Content Producer Name Role Phone Cathleen Gill JEWELRY DESIGNER Primary Care Provider [phone] Encounter Details Date Type Department Care Team ([facility] st Contact Info) Description 06/15/[address] [phone] Slim Lopez [phone] [place] [address] Social History Tobacco Use Types Packs/Day Years [...] on filedocumented in this encounter Care Teams Content Producer Relationship Specialty Start Date End Date Cathleen Gill NP [address] [place] [id number] PCP - General Internal Medicine 10/21/17 04/26/18 documented as of this encounter
--- OUTSIDE RECORDS SUMMARY | 2025-04-19 16:03 | XMS_ITS | Encounter Summary ---
Author Organization [employer] Address [address] [facility] [address] [place] [address] Care Team Providers Care Branch Operations Manager Name Role Phone Sandy Whitley MD Primary Care Provider + Reason for Visit * Reason Onset Date Comments Nutrition referral 04/17/2025 Encounter Details Date Type Department Care Team ([facility] Contact Info) Description 04/17/2025 Telephone [facility]ICINE [address], [place] [phone] L[address], [place] [phone] Nutrition referral Social History Tobacco Use Types Packs/Day Years [...] with others, in a hotel, in a halfway, living outside on the street, on a [...] as of this encounter Miscellaneous Notes * Telephone Encounter - Michelle Junior MA - 04/17/2025 3:14 PM EDT Telephone call to patient to schedule a nutrition appointment. Pt agree to come in on 05/19/25 at 9am. documented in this encounter Plan of Treatment Upcoming Encounters Date Type Department Care Team (Late st Contact Info) Description 05/19/2025 9:00 AM EDT Nutrition [facility] DIABETES/NUTRITION [address] [place] [address] [place] [address] 05/26/2025 10:30 AM EST Office Visit [facility]IC[facility] [address] [place] [address] Sandy Whitley MD [address] [place] [address] 06/28/2025 2:15 PM EST Office Visit [facility] ADULT DENTAL [address] [place] [address] Sheng Mcelroy documented as of this encounter Visit Diagnoses Not on filedocumented in this encounter Additional Health Concerns Assessment Noted Time PHQ-9 Depression Total Score: 7 02/14/20 10:55 AM EDT documented as of this encounter Care Teams Branch Operations Manager Relationship Specialty Start Date End Date Sandy Whitley MD [address] [place] [address] PCP - General Internal Medicine 02/13/25 documented as of this encounter
--- OUTSIDE RECORDS SUMMARY | 2025-04-19 16:03 | XMS_ITS | Clinical Summary ---
Author Organization [employer] Address [address] [place] [address] Care Team Providers Care Dressing Machine Operator Name Role Phone Sandy Whitley MD Primary [...] 1 tablet by mouth Once per day. 09/25/2017 Active montelukast (Singulair) 10 MG tablet Take [...] times daily for 10 days. 30 tablet 02/13/2025 Active meloxicam (Mobic) 15 MG tablet TAKE 1 TABLET (15 MG) BY MOUTH ONCE PER DAY. 30 tablet 02/27/2025 Active Acetaminophen Extra Strength 500 MG tablet TAKE 1 TABLET (500 MG) BY MOUTH EVERY 6 (SIX) HOURS IF NEEDED FOR MILD PAIN. 120 tablet 03/15/2025 Active Active Problems Problem Noted Date Diagnosed [...] 10/20/2024 Overview (10/20/2024): [place] tests done in [place]- was told everything is normal Flat foot [...] History of dyspnea 12/15/2017 Overview (10/20/2024): 12/09/2017 [facility]- DR Cr Routine 2 views No [...] test 07/22/2017 Overview (10/20/2024): Pt follows with [facility] at [address] [address] in [place]. Scheduled with PVC Chronic daily headache 07/06/2017 [...] (10/20/2024): Reports was treated with iron supplement- [facility] 08/2016 Reports heavy periods in the past Encounters * This document contains information received from the source organization and may not represent a complete record from that organization. Date Type Department Care Team Description 04/17/2025 Telephone [facility] [address] [place], [place] [phone] Celine López RD Nutrition referral 03/16/[address] [address] Sandy Whitely MD May03/13/[address] [address] Sandy Whitley MD 03/01/2025 Travel 02/27/2025 9:30 AM EDT Clinical Support [address] [address] Ria Almanza, TUCKER Essential hypertension 02/27/2025 Travel 02/26/2025 Travel 02/25/2025 Refill [facility] [address] [place] [phone] Sandy Whitley MD 02/22/2025 Results Follow-Up [address] [address] Sandy Whitley MD XR Lumbar Spine Complete 4+ Views 02/13/2025 10:45 AM EDT Office Visit [address] [place] [address] Sandy Whitley MD Pure hypercholesterolemia (Primary Dx); Moderate episode of recurrent major depressive disorder (CMS/HCC); Mild intermittent asthma without complication; Chronic bilateral low back pain without sciatica; Primary osteoarthritis of left knee; Essential hypertension 02/13/2025 Travel 02/09/[address] [address] Sandy Whitley MD chart prep 02/06/2025 Travel 02/03/2025 Patient Outreach [address] [address] Sandy Whitley MD Care Coordination (CHW outreach for SDOH housing search-referral completed ) 02/03/2025 Patient Outreach [address] [address] Sandy Whitley MD Pre-visit Planning (SDOH screening negative and tobacco screening negative) 01/26/2025 Refill [facility] [address] [place] [phone] Sandy Whitley MD 01/18/2025 Telephone [facility] [address] [place] [phone] Ronnell Johnson MD 01/17/2025 8:40 AM EDT Office Visit [facility] [address] [place] [phone] Ronnell Johnson MD Swelling of right foot [...] Info) Description 05/19/2025 9:00 AM EDT Nutrition [facility] DI[facility]ET[facility]/NUTRITION [address] [place] [address] Celine López, RD [address] [place] [address] 05/26/2025 10:30 AM EST Office Visit [facility] MEDICINE [address] [place] [address] Sandy Whitley MD [address] [place] [address] 06/28/2025 2:15 PM EST Office Visit [facility] ADULT DENTAL [address] [place], [place] [phone] Sheng Mcelroy Health Maintenance Due Date Last [...] Recently Relevant to Health Maintenance Results * [facility] US Lower Extremity Venous Duplex Bilateral (03/31/2025 10:00 AM EDT) 03/31/2025 10:0 0 AM EDT Narrative [facility] - 03/31/2025 11:01 AM EDT [address] [address] Ultrasound Report Signed Patient: Connie Hammonds MR#: [id number] : 1965 Acct:[id number] Age/Sex: 59 / F ADM Date: 03/31/25 Loc: HO.US Attending Dr: Karl Garcia MD Ordering Physician: Karl Gracia MD Date of Service: 03/31/25 Procedure(s): US venous duplex LE Accession Number(s): [id number] cc: Sandy Whitley MD; Karl Garcia MD [...] 03/31/25 1058 DD/ 1000 TD/TT: 03/31/25 1037 Shake Table Operator: Procedure Note Donotuseinterpreter, Image - 03/31/2025 [place] [address] Ultrasound Report Signed Patient: Shayan Hammonds#: [id number] : 1965Acct:[id number] Age/Sex: 59 / FADM Date: 03/31/25 Loc: .US Attending Dr: Karl Garcia MD Ordering Physician: Karl Garcia MD Date of Service: 03/31/25 Procedure(s): US venous duplex LE BI Accession Number(s): [id number] cc: Sandy Whitley MD; Karl Garcia MD [...] 03/31/25 1058 DD/ 1000 TD/TT: 03/31/25 1037 Shake Table Operator: [facility] External Provider CV VASC ULAR PROCEDURES Final Result Performing Organization Address City/State/[facility] Co de Phone Number [facility] [address] [place] [phone] * XR Knee 4+ Views Left (02/13/2025 12:00 PM EDT) Anatomical Region Laterality Modality Lower Extremities, Knee Left Radiogra phic Imaging 02/13/2025 12:0 0 PM EDT Narrative 02/13/2025 1:33 PM EDT [address] [address] XRay Report Signed Patient: Connie Hammonds MR#: [id number] : 1965 Acct:[id number] Age/Sex: 59 / F ADM Date: 02/13/25 Loc: HO.HHCX Attending Dr: Sandy Whitley MD Ordering Physician: Sandy Whitley MD Date of Service: 02/13/25 Procedure(s): XR knee LT 4V Accession Number(s): [id number] cc: Sandy Whitley MD EXAMINATION: XR KNEE [...] 02/13/25 1330 DD/ 1200 TD/TT: 02/13/25 1200 Shake Table Operator: Procedure Note Donotuseinterpreter, Image - 02/13/2025 [place] [address] XRay Report Signed Patient: Shayan Hammonds#: [id number] : 1965Acct:[id number] Age/Sex: 59 / FADM Date: 02/13/25 Loc: HO.HHCX Attending Dr: Sandy Whiltey MD Ordering Physician: Sandy Whitley MD Date of Service: 02/13/25 Procedure(s): XR knee LT 4V Accession Number(s): [id number] cc: Sandy Whitley MD EXAMINATION: XR KNEE [...] 02/13/25 1330 DD/ 1200 TD/TT: 02/13/25 1200 Shake Table Operator: Sandy Whitley MD IMG XR PROCEDURES Final Result * XR Lumbar Spine Complete 4+ Views (02/13/2025 11:53 AM EDT) Anatomical Region Laterality Modality Spine, L-spine Radiographic Itzel ging 02/13/2025 11:5 3 AM EDT Narrative 02/13/2025 1:37 PM EDT [address] [address] XRay Report Signed Patient: Connie Hammonds MR#: [id number] : 1965 Acct:[id number] Age/Sex: 59 / F ADM Date: 02/13/25 Loc: .HHCX Attending Dr: Sandy Whitley MD Ordering Physician: Sandy Whitley MD Date of Service: 02/13/25 Procedure(s): XR lumbar spine 4V min Accession Number(s): [id number] cc: Sandy Whitley MD EXAMINATION: XR LUMBAR [...] 02/13/25 1334 DD/ 1153 TD/TT: 02/13/25 1200 Shake Table Operator: Procedure Note Thomaster, Image - 02/13/[address] [address] XRay Report Signed Patient: Valentina HammondsR#: [id number] : 1965Acct:[id number] Age/Sex: 59 / FADM Date: 02/13/25 [facility]: Sandy Whitley MD Ordering Physician: Sandy Whitley MD Date of Service: 02/13/25 Procedure(s): XR lumbar spine 4V min Accession Number(s): [id number] cc: Sandy Whitley MD EXAMINATION: XR LUMBAR [...] 02/13/25 1334 DD/ 1153 TD/TT: 02/13/25 1200 Shake Table Operator: Sandy Whitley MD IMG XR PROCEDURES Final Result * Slide Review (01/18/2025 9:28 AM EDT) Slide Review VERIFIED [facility] 01/18/2025 9:28 AM EDT 01/18/2025 11:03 AM EDT us Ronnell Johnson MD LAB BLOOD ORDERABLES Final Resul t Performing Organization Address City/[facility]/ZIP Co de Phone Number [facility] [address] [place] [phone] * TSH with Reflex to Free T4 (01/18/2025 9:28 AM EDT) TSH reflex Free T4 1.29 0.32 - 4.0 uIU/mL [facility] Blood Venous blood specimen / Unknown 01/18/2025 9:28 AM EDT 01/18/2025 11:03 AM EDT us Ronnell Johnson MD LAB BLOOD ORDERABLES Final Resul t Performing Organization Address [facility] Co de Phone Number [facility] [address] [place] [phone] * CBC auto differential (01/18/2025 9:28 AM EDT) White Blood Count 6.2 4.8 - 10.8 X10*3/uL [facility] Red Blood Count 4.95 4.20 - 5.50 X10*6/uL [facility] Hemoglobin 13.9 12.0 - 16.0 g/dl [facility] Hematocrit 40.8 37.0 - 47.0 % [facility] Mean Corpuscular Volume 82.4 80.0 - 98.0 fL [facility] Mean Corpuscular Hemoglobin 28.1 27.0 - 33.0 pg [facility] Mean Corpuscular HGB Conc 34.1 31.0 - 35.0 g/dl [facility] Red Cell Distribution Width 13.9 11.0 - 16.0 % [facility] Platelet Count TNP 160 - 400 X10*3/uL [facility] Comment:Platelet clumps note d. Platelet count will not be accurate.Recollecting the platelet count in a blue top tube mayeliminate platelet clumps. Order platelet count blue toptube. A lavender top tube must be drawn if CBC is required. Mean Platelet Volume TNP 9.4 - 12.3 fL [facility] Neutrophils Percent Auto 61.0 45 - 73 % [facility] Imm Gran Pct Auto 0.3 0.0 - 0.4 % [facility] Lymphocytes Percent Auto 28.0 20 - 40 % [facility] Monocytes Percent Auto 6.5 2 - 11 % [facility] Eosinophils Percent Auto 3.2 0 - 4 % [facility] Basophils Percent Auto 1.0 0 - 2 % [facility] NRBC Pct Auto 0.0 0.0 - 0.2 /100WBC [facility] Neutrophils Absolute Auto 3.8 2.0 - 8.3 x10*3/uL [facility] Imm Gran Abs Auto 0.02 0.00 - 0.03 X10*3/uL [facility] Lymphocytes Absolute Auto 1.7 1.2 - 4.9 X10*3/uL [facility] Monocytes Absolute Auto 0.4 0.1 - 1.2 X10*3/uL [facility] Eosinophils Absolute Auto 0.2 0.0 - 0.4 X10*3/uL [facility] Basophils Absolute Auto 0.1 0.0 - 0.2 X10*3/uL [facility] NRBC Abs Auto 0.000 0.0 - 0.012 X10*3/uL [facility] Blood Venous blood specimen / Unknown 01/18/2025 9:28 AM EDT 01/18/2025 11:03 AM EDT us Ronnell Johnson MD LAB BLOOD ORDERABLES Edited Resu lt - Final [facility] [address] [place] [phone] * Hepatitis C Antibody with Reflex to HCV, RNA, Quantitative, Real-Time PCR (01/18/2025 9:28 AM EDT) Hepatitis C Antibody Nonreactive Nonreactive [facility] Comment:Antibodies to HCV no t detected; does not exclude early acuteHCV infection. Blood Venous blood specimen / Unknown 01/18/2025 9:28 AM EDT 01/18/2025 11:03 AM EDT us Ronnell Johnson MD LAB BLOOD ORDERABLES Final Resul t Performing Organization Address [facility] Co de Phone Number [facility] [address] [place] [phone] * Hepatitis B surface antigen, EIA (01/18/2025 9:28 AM EDT) Pathologist [facility] Hepatitis B Surface Ag Negative Negative [facility] Blood Venous blood specimen / Unknown 01/18/2025 9:28 AM EDT 01/18/2025 11:03 AM EDT us Ronnell Johnson MD LAB BLOOD ORDERABLES Final Resul t Performing Organization Address [facility] de Phone Number [facility] [address] [place] [phone] * Hepatitis B Core Antibody, Total (01/18/2025 9:28 AM EDT) Hepatitis B Core Antibody Nonreactive Nonreactive [facility] Blood Venous blood specimen / Unknown 01/18/2025 9:28 AM EDT 01/18/2025 11:03 AM EDT us Ronnell Johnson MD LAB BLOOD ORDERABLES Final Resul t Performing Organization Address [facility] de Phone Number [facility] [address] [place] [phone] * RPR (Monitor) with Reflex to??Titer (01/18/2025 9:28 AM EDT) RPR (Monitor) w/Refl Titer NON-REACTI VE NON-REACT PAOLA [facility] Comment:THIS TEST WAS PERFOR MED AT:[facility] [place] [id number] JORGENSEN MD Rapid Plasma Reagin Ab Titer TNP [facility] Blood Venous blood specimen / Unknown 01/18/2025 9:28 AM EDT 01/18/2025 11:03 AM EDT us Ronnell Johnson MD LAB BLOOD ORDERABLES Final Resul t Performing Organization Address [facility] Co de Phone Number [facility] [address] [place] [phone] * HIV-1/2 Antigen and Antibodies, Fourth Generation, with Reflexes (01/18/2025 9:28 AM EDT) Pathologist [facility] HIV AB/AG Nonreactive Nonreactive [facility] Comment:HIV-1 p24 Ag and/or HIV-1/HIV-2 Ab not detected.A test result that is nonreactive does not exclude thepossibility of exposure to or infection with HIV-1 and/orHIV-2. Nonreactive results in this assay for individualswith prior exposure to HIV-1 and/or HIV-2 may be due toantigen and antibody levels that are below the limit ofdetection of this assay.The [employer] HIV Ag/Ab Combo assay result andsupplemental assay results should be interpreted inconjunction with the patient's clinical presentation,history and other laboratory results. If the results areinconsistent with clinical evidence, additional testing issuggested to confirm the result. Blood Venous blood specimen / Unknown 01/18/2025 9:28 AM EDT 01/18/2025 11:03 AM EDT us Ronnell Johnson MD LAB BLOOD ORDERABLES Final Resul t Performing Organization Address City/[facility]/ZIP Co de Phone Number [facility] [address] [place] [phone] * Hepatitis B Surface Antibody, Qualitative (01/18/2025 9:28 AM EDT) Pathologist [facility] ~Hepatitis B Surface Antibody NONREACTIVE Nonreactive [facility] Comment:Nonreactive: < 8.00 mIU/mL Blood Venous blood specimen / Unknown 01/18/2025 9:28 AM EDT 01/18/2025 11:03 AM EDT us Ronnell Johnson MD LAB BLOOD ORDERABLES Final Resul t Performing Organization Address [facility]/ZIP Co de Phone Number [facility] [address] [place] [phone] * Magnesium (01/18/2025 9:28 AM EDT) [facility] Magnesium 2.1 1.6 - 2.6 mg/dL [facility] Blood Venous blood specimen / Unknown 01/18/2025 9:28 AM EDT 01/18/2025 11:03 AM EDT us Ronnell Johnson MD LAB BLOOD ORDERABLES Final Resul t Performing Organization Address [facility] Co de Phone Number [facility] [address] [place] [phone] * Hemoglobin A1c (01/18/2025 9:28 AM EDT) [facility] Hemoglobin A1c 5.9 <6.0 % [facility] Comment:Hemoglobin A1C Refer ence Range Adults: 4.8 - 6.0 % Non diabetic: < 6.0 % Goal: < 7.0 %Additional Action Suggested: > 8.0 %Note: Hemoglobin A1c results are invalid for patients with abnormal amounts of HbF. Blood transfusions may impact the HbA1c concentration in the patient sample. Estimated Average Glucose 123 mg/dL [facility] Comment:eAG = Estimated ave rage glucose which is %A1C expressed asaverage glucose, using the formula of the X9A-UquhvrsRjascvz Glucose study (ADAG), Diabetes Care, Vol.31,#8,2007 Blood Venous blood specimen / Unknown 01/18/2025 9:28 AM EDT 01/18/2025 11:03 AM EDT us Ronnell Johnson MD LAB BLOOD ORDERABLES Final Resul t Performing Organization Address [facility] Co de Phone Number [facility] [address] [place] [phone] * Vitamin B12 (01/18/2025 9:28 AM EDT) Vitamin B12 751 200 - 900 pg/mL [facility] Comment:NORMAL 200-900 PG/ML INDETERMINATE 160-199 PG/ML DEFICIENT < 160 PG/ML Blood Venous blood specimen / Unknown 01/18/2025 9:28 AM EDT 01/18/2025 11:03 AM EDT us Ronnell Johnson MD LAB BLOOD ORDERABLES Final Resul t Performing Organization Address [facility] Co de Phone Number [facility] [address] [place] [phone] * (ABNORMAL) Lipid Panel, Standard (01/18/2025 9:28 AM EDT) Triglycerides 106 <150 mg/dL [facility] Comment:Desirable Triglyceri de: less than 150 mg/dLBorderline High Triglyceride 150-199 mg/dLHigh Triglyceride: 200-499 mg/dLVery High Triglyceride: greater than or equal to 5OO mg/dL Cholesterol 120 <200 mg/dL [facility] Comment:Desirable Cholestero l: less than 200 mg/dLBorderline High Cholesterol: 200-239 mg/dLHigh Cholesterol: greater than 239 mg/dL LDL Cholesterol Calculated 64 <100 mg/dL [facility] Comment:Desirable LDL: less than 100 mg/dLNear Optimal/Above Optimal LDL: 110- 129 mg/dLBorderline High LDL: 130-159 mg/dLHigh LDL: 160-189 mg/dLVery High LDL: greater than or equal to 190 mg/dL HDL Cholesterol 35(L) >40 mg/dL [facility] Comment:Desirable HDL: great er than 40 mg/dL Note: This HDL assay may give artificially low results in patients with liver disease. Blood Venous blood specimen / Unknown 01/18/2025 9:28 AM EDT 01/18/2025 11:03 AM EDT us Ronnell Johnson MD LAB BLOOD ORDERABLES Final Resul t [facility] [address] [place] [phone] * (ABNORMAL) Comprehensive Metabolic Panel (01/18/2025 9:28 AM EDT) Sodium 141 135 - 145 mmol/L [facility] Potassium 4.0 3.3 - 5.1 mmol/L [facility] Chloride 108 96 - 108 mmol/L [facility] Carbon Dioxide 27 22 - 29 mmol/L [facility] Anion Gap 10(L) 12 - 20 [facility] Urea Nitrogen (BUN) 16 9 - 16 mg/dL [facility] Creatinine, Serum 0.79 0.5 - 1.4 mg/dL [facility] Estimated Glomerular Filt Rate >60 [facility] Comment:Chronic Kidney Disea se: Estimated GFR < 60 mL/min/1.09d3Vicmyy Kidney Disease: Estimated GFR < 15 mL/min/1.73m2 Glucose 91 60 - 115 mg/dL [facility] Calcium 9.1 8.4 - 10.2 mg/dL [facility] Bilirubin, Total 0.6 0.0 - 1.0 mg/dL [facility] Aspartate Amino Transferase 24 5 - 31 U/L [facility] Alanine Aminotransferase 20 0 - 31 U/L [facility] Total Protein 7.0 6.5 - 8.0 g/dL [facility] Albumin Level 4.5 3.5 - 5.0 g/dL [facility] Alkaline Phosphatase 102 39 - 117 U/L [facility] Blood Venous blood specimen / Unknown 01/18/2025 9:28 AM EDT 01/18/2025 11:03 AM EDT us Ronnell Johnson MD LAB BLOOD ORDERABLES Final Resul t [facility] [address] [place] [phone] from Last 3 Months Insurance [facility] MEDICAID STAND ADULT Care Teams Dressing Machine Operator Relationship Specialty Start Date End Date Sandy Whitley MD [address] [place] [phone] PCP - General Internal Medicine 02/13/25
== END 2025-04-19 14:57 | disposition home or self-care (01) ==
LOC: HO.US 14:56
PROVIDERS: PCP Internal Medicine; Visit Provider Internal Medicine
DX: M54.50 Low back pain, unspecified (principal); G89.29 Other chronic pain
CPT/HCPCS: 76775

== ENCOUNTER → 2025-04-19 15:16 | Outpatient (BNV) | payer MEDICAID, SELFPAY | PROVIDERS: PCP Internal Medicine; Visit Provider Radiology Diagnostic Radiology | DX: N20.0 Calculus of kidney (principal); N28.1 Cyst of kidney, acquired | CPT/HCPCS: 76775 ==